=== PATIENT | female | born 1980 | race Caucasian/White ===

== ENCOUNTER 2016-07-27 19:14 | Emergency (ER) | payer OTHER ==
[~2016-07-27] VITALS: Ht 165.1 cm; Wt 113.4 kg
[~2016-07-27 19:14] MED LIST: ACULAR 3 ML3 M1 OP; AMOXICILLIN500 M2 PO; AMOXICILLIN500 MG PO; AMOXIL500 MG PO; ANAPROX DS550 MG PO; BACTROBAN2% TP; BUPROPION HCL300 MG PO; CARAFATE1 GM/10 ML PO; CEFUROXIME AXE250 MG PO; CIPRO250 MG PO; CIPRODEX 0.3%-7.5 ML OT; CIPROFLOXACIN500 MG PO; CLARITIN10 MG PO; COLACE100 MG PO; CORTISPORIN SUS10 ML OT; CYCLOBENZAPRINE10 MG PO; DARVOCET N 1001 TAB PO; DAYPRO600 M1 PO; DIFLUCAN150 MG PO; FERRATE325 MG PO; HYDROCODONE BIT1 T11 PO; IBU-8800 MG PO; K-TAB20 MEQ PO; KCL; KEFLEX500 M1 PO; LEVOTHYROXINE0.1 MG PO; LISINOPRIL2.5 MG PO; LISINOPRIL5 MG PO; LOMOTIL 0.025 M1 TA1 PO; LOTRISONE 0.05%1 CRE TP; MACROBID100 M1 PO; MEDROL DOSEPAK4 MG PO; MOTRIN 800 MG E4 TAB PO; MOTRIN600 MG PO; MOTRIN800 MG PO; NAPROSYN500 MG PO; NKHM; NORCO 325 MG-51 TAB PO; NYSTOP100000 U/G T; Nystatin Ointme30 GM T; PERCOCET 325 MG1 TA2 PO; PERCOCET 325 MG1 TA5 PO; PERCOCET 325 MG1 TA7 PO; PHENERGAN W/ DE30 ML PO; PHENERGAN W/DM120 ML PO; PIROXICAN10 MG PO; PREDNICOT10 MG PO; PRENATAL1 TA1 PO; PREVACID30 MG PO; PROAIR HFA0.09 MG/AC INH; PYRIDIUM200 M1 PO; ROBAXIN750 MG PO; SEPTRA DS 800 M1 TAB PO; SYNTHROID,LEVO75 MCG PO; SYNTHROID0.025 MG PO; Synthroid,Levo25 MCG PO; Synthroid,Levo50 MCG PO; TESSALON PERLE100 M1 PO; TOBREX OPHTH S2.5 ML OPH; TRAMADOL HCL50 MG PO; TRIMOX500 MG PO; ULTRAM50 MG PO; VIBRAMYCIN100 MG PO; VICODIN 5/500 505 MG PO; VITAMIN D5000 I3 PO; ZITHROMAX Z PA250 MG PO; ZITHROMAX250 MG PO; ZOFRAN ODT4 MG SL; ZOFRAN4 MG PO; Zofran4 MG PO
[2016-07-27 20:02] VITALS: BP 130/90
[2016-07-27] MEDS ORDERED: AMOXICILLIN500 M2 PO (20:11)
== END 2016-07-27 20:07 | disposition home or self-care (01) ==
LOC: ED 19:14
DX: J02.9 Acute pharyngitis, unspecified (principal); I10 Essential (primary) hypertension; Z90.49 Acquired absence of other specified parts of digestive tract

== ENCOUNTER → 2016-08-01 | Outpatient (CLI) | payer OTHER ==
[2016-08-01 16:57] LABS: BILIRUBIN NEGATIVE (NEGATIVE); BLOOD 1+ (NEGATIVE); CLARITY CLEAR (CLEAR); COLOR YELLOW (YELLOW); GLUCOSE NEGATIVE (NEGATIVE); KETONE NEGATIVE (NEGATIVE); LEUKO ESTERASE NEGATIVE (NEGATIVE); NITRITE NEGATIVE (NEGATIVE); PROTEIN NEGATIVE (NEGATIVE); UROBILINOGEN 0.2 E.U./dl (0.2-1.0)
[2016-08-01 17:20] LABS: BACTERIA 2+; WBC 0-2 wbc/hpf (0-5)
[2016-08-01 17:22] LABS: ALBUMIN 3.6 gm/dl (3.1-4.5); BUN 8 mg/dl (7-24); CARBON DIOXIDE 28 mmol/L (21-32); CHLORIDE 104 mmol/L (98-107); EST GLOM FILT AFRICAN AMERICAN > 60 ml/min; GLUCOSE 86 mg/dL (65-99); PHOSPHOROUS 3.6 mg/dL (2.5-4.9); POTASSIUM 3.7 mmol/L (3.5-5.1); SODIUM 142 mmol/L (136-145)
[2016-08-01 17:25] LABS: BASO % 0.5 % (0.0-1.0); EOS # 0.1 10*3/uL (0.0-0.4); EOS % 1.5 % (1.0-4.0); HEMOGLOBIN 14.6 g/dl (12.0-16.0); LYMPH # 2.1 10*3/uL (1.3-4.4); LYMPH % 27.9 % (27.0-41.0); MEAN CORPUSCULAR HGB 30.2 pg (27.0-31.0); MEAN PLATELET VOLUME 9.5 fl (9.6-12.3); MONO # 0.5 10*3/uL (0.1-1.0); MONO % 6.5 % (3.0-9.0); NEUT # 4.7 10*3/uL (2.3-7.9); NEUT % 63.2 % (47.0-73.0); PLATELET COUNT AUTOMATED 374 10*3/uL (130-400); RED BLOOD COUNT 4.83 10*6/uL (4.10-5.10); RED CELL DISTRI WIDTH 13.4 % (0-14.5); WHITE BLOOD COUNT 7.4 10*3/uL (4.8-10.8)
== END | disposition home or self-care (01) ==
LOC: LAB 15:46
PROVIDERS: Internal Medicine Nephrology
DX: N18.3 Chronic kidney disease, stage 3 (moderate) (principal)

== ENCOUNTER 2017-04-15 12:07 | Emergency (ER) | payer OTHER ==
[~2017-04-15] VITALS: Ht 165.1 cm; Wt 109.3 kg
[2017-04-15 12:25] VITALS: BP 152/98
[2017-04-15] MEDS ORDERED: ROBITUSSIN DM 105 ML PO (15:03)
[2017-04-15] MEDS ORDERED: Motrin,Rufen800 MG PO (15:03)
[2017-04-15] MEDS ORDERED: PHENERGAN25 M3 PO (15:03)
== END 2017-04-15 15:11 | disposition home or self-care (01) ==
LOC: ED 12:07
DX: J11.1 Influenza due to unidentified influenza virus with other respiratory manifestations (principal); Z98.890 Other specified postprocedural states; Z98.51 Tubal ligation status; Z90.49 Acquired absence of other specified parts of digestive tract; Z79.899 Other long term (current) drug therapy

== ENCOUNTER 2017-05-18 22:48 | Emergency (ER) | payer OTHER ==
[~2017-05-18] VITALS: Ht 165.1 cm; Wt 108.9 kg
[~2017-05-18 22:48] MED LIST changes: +Motrin,Rufen800 MG PO; +PHENERGAN25 M3 PO; +ROBITUSSIN DM 105 ML PO
[2017-05-18 22:58] VITALS: BP 153/96
[2017-05-18 23:27] LABS: BILIRUBIN NEGATIVE (NEGATIVE); BLOOD NEGATIVE (NEGATIVE); CLARITY SL CLOUDY (CLEAR); COLOR YELLOW (YELLOW); GLUCOSE NEGATIVE (NEGATIVE); KETONE NEGATIVE (NEGATIVE); LEUKO ESTERASE NEGATIVE (NEGATIVE); NITRITE NEGATIVE (NEGATIVE); PH 5.5 (5.0-9.0); SPECIFIC GRAVITY >= 1.030 (1.005-1.030); UROBILINOGEN 0.2 E.U./dl (0.2-1.0)
[2017-05-18 23:32] LABS: BACTERIA 2+; MUCOUS 1+; RBC 0-2 rbc/hpf (0-2)
[2017-05-19 00:10] LABS: BASO # 0.1 10*3/uL (0.0-0.1); BASO % 0.7 % (0.0-1.0); EOS # 0.1 10*3/uL (0.0-0.4); EOS % 1.9 % (1.0-4.0); HEMATOCRIT 38.8 % (37.0-47.0); HEMOGLOBIN 13.5 g/dl (12.0-16.0); LYMPH # 2.3 10*3/uL (1.3-4.4); LYMPH % 33.8 % (27.0-41.0); MEAN CELL VOLUME 87.2 fl (81.0-99.0); MEAN CORPUSCULAR HGB 30.3 pg (27.0-31.0); MEAN CORPUSCULAR HGB CONC 34.8 g/dl (33.0-37.0); MEAN PLATELET VOLUME 9.1 fl (9.6-12.3); MONO # 0.4 10*3/uL (0.1-1.0); MONO % 6.1 % (3.0-9.0); NEUT # 3.9 10*3/uL (2.3-7.9); NEUT % 57.4 % (47.0-73.0); PLATELET COUNT AUTOMATED 314 10*3/uL (130-400); RED BLOOD COUNT 4.45 10*6/uL (4.10-5.10); RED CELL DISTRI WIDTH 13.4 % (0-14.5); WHITE BLOOD COUNT 6.9 10*3/uL (4.8-10.8)
[2017-05-19 00:25] LABS: ALBUMIN 3.6 gm/dl (3.1-4.5); ALKALINE PHOSPHATASE 38 U/L (45-117); BUN 13 mg/dl (7-24); CHLORIDE 104 mmol/L (98-107); CREATININE 1.09 mg/dL (0.55-1.02); POTASSIUM 3.3 mmol/L (3.5-5.1); SGOT/AST 16 IU/L (3-35); SGPT/ALT 35 U/L (12-78); SODIUM 138 mmol/L (136-145); TOTAL PROTEIN 6.9 gm/dL (6.4-8.2)
[2017-05-19] MEDS ORDERED: MACROBID100 M1 PO (00:38)
== END 2017-05-19 00:46 | disposition home or self-care (01) ==
LOC: ED 22:48
PROVIDERS: Nurse Practitioner Family
DX: N39.0 Urinary tract infection, site not specified (principal); I12.9 Hypertensive chronic kidney disease with stage 1 through stage 4 chronic kidney disease, or unspecified chronic kidney disease; N18.3 Chronic kidney disease, stage 3 (moderate); E03.9 Hypothyroidism, unspecified; E66.9 Obesity, unspecified; Z68.42 Body mass index [BMI] 45.0-49.9, adult; Z98.890 Other specified postprocedural states; Z87.442 Personal history of urinary calculi; Z98.51 Tubal ligation status; Z90.49 Acquired absence of other specified parts of digestive tract; Z79.899 Other long term (current) drug therapy

== ENCOUNTER 2017-06-16 10:26 | Emergency (ER) | payer OTHER ==
[~2017-06-16] VITALS: Ht 165.1 cm; Wt 108.9 kg
[~2017-06-16 10:26] MED LIST changes: +FLONASE ALLERG9.9 ML NAS
[2017-06-16 10:58] VITALS: BP 169/94
[2017-06-16] MEDS ORDERED: PREDNISONE10 MG PO (13:11)
== END 2017-06-16 13:17 | disposition home or self-care (01) ==
LOC: ED 10:26
DX: R51 Headache (principal); Z79.899 Other long term (current) drug therapy; Z90.49 Acquired absence of other specified parts of digestive tract; Z98.51 Tubal ligation status

== ENCOUNTER 2017-06-24 13:30 | Emergency (ER) | payer OTHER ==
[~2017-06-24] VITALS: Ht 165.1 cm; Wt 108.9 kg
[~2017-06-24 13:30] MED LIST changes: +PREDNISONE10 MG PO
[2017-06-24 13:35] VITALS: BP 132/93
[2017-06-24] MEDS ORDERED: AVPAK AZITHROM250 M1 PO (14:38)
== END 2017-06-24 14:41 | disposition home or self-care (01) ==
LOC: ED 13:30
DX: J02.9 Acute pharyngitis, unspecified (principal); H92.03 Otalgia, bilateral; J06.9 Acute upper respiratory infection, unspecified; Z90.49 Acquired absence of other specified parts of digestive tract

== ENCOUNTER 2017-08-08 13:24 | Inpatient (IN) | payer OTHER ==
[~2017-08-08] VITALS: Ht 165.1 cm; Wt 108.1 kg
--- NOTE | ~2017-08-08 | CON ---
[place], [place] REPORT OF CONSULTATION NAME: BIGG BROWN UNIT #: [id number] ROOM: 412 DOCTOR: ALEXANDER SALGADO MD BIRTHDATE: [birth year] DOS: 08/09/2017 REASON FOR CONSULTATION: Chest pain. HISTORY OF PRESENT ILLNESS: The patient is a 36-year-old woman who has no previously documented history of coronary artery disease. She has had chest pain in the past. Evaluation by Dr. Coreas in [place] last summer showed a reportedly normal stress test. It was felt that she had noncardiac chest pain. The patient was at work at the [employer] when she developed chest discomfort with some dyspnea and fatigue. She states that this was not the same as the pains that she had in the past with gastroesophageal reflux and noted that antacids did not seem to help much. She told her biomedical engineering supervisor who directed her to the plant nurse from which she was directed to the hospital. Since she has been in the Emergency Room, her electrocardiogram has shown nonspecific ST and T-wave changes. Troponins, however, have been normal. PAST MEDICAL HISTORY: Includes: 1. Essential hypertension. 2. Gastroesophageal reflux disease. 3. Hypothyroidism. 4. Obesity. 5. Obstructive sleep apnea. 6. Prediabetes. 7. Chronic renal insufficiency, stage I. PAST SURGICAL HISTORY: The patient is status post cholecystectomy, section, and endometrial ablation. She has also had endoscopy and a hernia repair. MEDICATIONS: Prior to admission included ibuprofen 800 mg t.i.d., levothyroxine 200 mcg daily and lisinopril 5 mg daily. ALLERGIES: She has no known drug allergies. FAMILY HISTORY: The patient's father when she was quite young. She states that she was told that he consumed alcohol and prescription drugs to excess. She believes that he did , however, of heart disease. The patient's family otherwise is negative for early coronary artery disease. REVIEW OF SYSTEMS: The patient denies diplopia or loss of vision. She denies focal weakness. She denies lightheadedness or syncope. She does have dyspnea on exertion. She does have chest pain as noted above. She denies nausea or vomiting. She denies hemoptysis or hematemesis. She denies blood in the urine or stools. She denies any skin rashes. She has had some weight gain over the last year. She denies any peripheral edema. The remainder of the review of systems is negative except as noted above. SOCIAL HISTORY: The patient does not smoke or consume alcohol. [place], [place] REPORT OF CONSULTATION NAME: BIGG BROWN UNIT #: [id number] ROOM: 412 DOCTOR: ALEXANDER SALGADO MD BIRTHDATE: [birth year] PHYSICAL EXAMINATION: GENERAL: The patient is an overweight white female who is awake, alert and oriented. VITAL SIGNS: Pulse is 79 and regular, blood pressure 113/85. She is afebrile. HEENT: Normocephalic and atraumatic. Extraocular muscles are intact. Sclerae are clear. Pupils equal, round and react to light. The oral mucosa is moist. Tongue is midline. NECK: Supple. She has no jugular distention. Carotids are full. I heard no bruits. She had no neck or supraclavicular masses, no thyromegaly. LUNGS: Respirations are unlabored. Her chest is clear to auscultation and percussion. She has no presacral edema or chest wall tenderness. CARDIOVASCULAR: Has a regular rhythm. She has a soft S4 gallop, but no S3 or murmur. The PMI is not displaced. She has no precordial heave, lift or thrill. ABDOMEN: Soft and normally active without masses, organomegaly or bruits. EXTREMITIES: Showed no edema. Peripheral pulses are easily palpated in the feet. LABORATORY DATA: I reviewed her electrocardiogram, which showed sinus rhythm with nonspecific ST and T-wave changes. IMPRESSION: 1. Atypical chest pain. Thus far, there is no objective evidence for an acute cardiac event. 2. Morbid obesity. 3. Hypertension. PLAN: We will proceed with a pharmacologic stress test. Further recommendations depend upon the results of the study. In the interim, the patient should continue to attempt a healthy lifestyle and avoid risks for coronary disease. I thank the hospitalist physicians for asking our advice regarding her care. ALEXANDER SALGADO MD CM:CONSTR:REPORT OF CONSULTATION 1035 08/09/17 1100 interface
[~2017-08-08 13:24] MED LIST changes: +AVPAK AZITHROM250 M1 PO; -LEVOTHYROXINE0.1 MG PO; +LEVOTHYROXINE200 MC2 PO
[2017-08-08 13:29] VITALS: BP 135/92
[2017-08-08 13:50] LABS: BASO # 0.1 10*3/uL (0.0-0.1); BASO % 0.8 % (0.0-1.0); EOS # 0.1 10*3/uL (0.0-0.4); HEMOGLOBIN 14.6 g/dl (12.0-16.0); LYMPH # 1.9 10*3/uL (1.3-4.4); LYMPH % 26.8 % (27.0-41.0); MEAN CELL VOLUME 86.2 fl (81.0-99.0); MEAN CORPUSCULAR HGB CONC 34.8 g/dl (33.0-37.0); MEAN PLATELET VOLUME 8.8 fl (9.6-12.3); MONO # 0.5 10*3/uL (0.1-1.0); MONO % 6.6 % (3.0-9.0); NEUT # 4.6 10*3/uL (2.3-7.9); NEUT % 64.7 % (47.0-73.0); PLATELET COUNT AUTOMATED 342 10*3/uL (130-400); RED BLOOD COUNT 4.87 10*6/uL (4.10-5.10); RED CELL DISTRI WIDTH 13.1 % (0-14.5); WHITE BLOOD COUNT 7.1 10*3/uL (4.8-10.8)
[2017-08-08 13:59] LABS: ACT PARTIAL THROMBO TIME 26.3 SECONDS (20.8-31.5); INTERNATIONAL NORM RATIO 0.9 (2.0-3.5)
[2017-08-08 14:06] LABS: ALBUMIN 3.8 gm/dl (3.1-4.5); ALKALINE PHOSPHATASE 38 U/L (45-117); BUN 13 mg/dl (7-24); CHLORIDE 102 mmol/L (98-107); CREATININE 1.06 mg/dL (0.55-1.02); LIPASE 77 U/L (73-393); POTASSIUM 3.6 mmol/L (3.5-5.1); SGOT/AST 20 IU/L (3-35); SGPT/ALT 43 U/L (12-78); SODIUM 137 mmol/L (136-145); TOTAL PROTEIN 7.8 gm/dL (6.4-8.2)
[2017-08-08 14:07] LABS: BETA-HCG, QUANT < 1.0 mIU/mL (1-3)
[2017-08-08 14:10] LABS: TROPONIN I < 0.015 ng/ml (<0.045)
[2017-08-08 14:23] VITALS: BP 145/87
[2017-08-08 14:59] VITALS: BP 128/91
[2017-08-08 16:45] VITALS: BP 148/95
[2017-08-08 19:24] VITALS: BP 150/70
[2017-08-08 20:00] VITALS: BP 148/87
[2017-08-09] VITALS: BP 122/69; BP 126/82
[2017-08-09 06:29] LABS: BASO % 0.5 % (0.0-1.0); EOS # 0.1 10*3/uL (0.0-0.4); EOS % 1.4 % (1.0-4.0); HEMATOCRIT 40.4 % (37.0-47.0); HEMOGLOBIN 13.9 g/dl (12.0-16.0); LYMPH # 1.5 10*3/uL (1.3-4.4); LYMPH % 27.2 % (27.0-41.0); MEAN CELL VOLUME 86.9 fl (81.0-99.0); MEAN CORPUSCULAR HGB 29.9 pg (27.0-31.0); MEAN CORPUSCULAR HGB CONC 34.4 g/dl (33.0-37.0); MONO # 0.5 10*3/uL (0.1-1.0); MONO % 9.4 % (3.0-9.0); NEUT # 3.4 10*3/uL (2.3-7.9); NEUT % 61.1 % (47.0-73.0); PLATELET COUNT AUTOMATED 310 10*3/uL (130-400); RED BLOOD COUNT 4.65 10*6/uL (4.10-5.10); RED CELL DISTRI WIDTH 13.2 % (0-14.5); WHITE BLOOD COUNT 5.6 10*3/uL (4.8-10.8)
[2017-08-09 06:48] LABS: ALBUMIN 3.5 gm/dl (3.1-4.5); ALKALINE PHOSPHATASE 33 U/L (45-117); BUN 20 mg/dl (7-24); CHLORIDE 105 mmol/L (98-107); CREATININE 0.89 mg/dL (0.55-1.02); PHOSPHOROUS 5.7 mg/dL (2.5-4.9); POTASSIUM 3.6 mmol/L (3.5-5.1); SGOT/AST 20 IU/L (3-35); SGPT/ALT 39 U/L (12-78); SODIUM 138 mmol/L (136-145)
[2017-08-09 06:55] LABS: THYROID STIM HORMONE (HS) 0.038 uIU/ml (0.358-4.75)
[2017-08-09 07:12] LABS: ACT PARTIAL THROMBO TIME 25.7 SECONDS (20.8-31.5); INTERNATIONAL NORM RATIO 0.9 (2.0-3.5)
[2017-08-09 08:00] VITALS: BP 113/85
[2017-08-09 08:22] LABS: VITAMIN D, 25-HYDROXY 15.9 ng/mL (30-100)
[2017-08-09 12:00] VITALS: BP 124/69
[2017-08-09] MEDS ORDERED: VITAMIN D-32000 UNIT PO (16:56)
== END 2017-08-09 17:41 | disposition home or self-care (01) | DRG 313 ==
LOC: ED 13:24 → EDHOLD 18:38 → 4E 19:40
PROVIDERS: Emergency Medicine; Internal Medicine
PROC: 4A02XM4 Measurement of Cardiac Total Activity, External Approach (ICD-10-PCS; principal; 2017-08-09)
PROC: 3E073KZ Introduction of Other Diagnostic Substance into Coronary Artery, Percutaneous Approach (ICD-10-PCS; principal; 2017-08-09)
DX: R07.89 Other chest pain (principal); R65.10 Systemic inflammatory response syndrome (SIRS) of non-infectious origin without acute organ dysfunction; K76.0 Fatty (change of) liver, not elsewhere classified; E66.01 Morbid (severe) obesity due to excess calories; E83.39 Other disorders of phosphorus metabolism; E83.41 Hypermagnesemia; R06.82 Tachypnea, not elsewhere classified; R73.9 Hyperglycemia, unspecified; R91.1 Solitary pulmonary nodule; N18.2 Chronic kidney disease, stage 2 (mild); K21.9 Gastro-esophageal reflux disease without esophagitis; E03.9 Hypothyroidism, unspecified; I12.9 Hypertensive chronic kidney disease with stage 1 through stage 4 chronic kidney disease, or unspecified chronic kidney disease; G47.33 Obstructive sleep apnea (adult) (pediatric); Z80.0 Family history of malignant neoplasm of digestive organs; Z82.49 Family history of ischemic heart disease and other diseases of the circulatory system; Z90.49 Acquired absence of other specified parts of digestive tract; Z68.39 Body mass index [BMI] 39.0-39.9, adult

== ENCOUNTER → 2017-09-26 | Day surgery (SDC) | payer OTHER ==
[~2017-09-26] VITALS: Ht 165.1 cm; Wt 104.3 kg
[~2017-09-26] MED LIST changes: +BUDEPRION XL150 MG PO; +VITAMIN D-32000 UNIT PO
--- NOTE | ~2017-09-26 | O ---
[place], [place] OPERATIVE NOTE NAME: BIGG BROWN UNIT #: [id number] ROOM: DOCTOR: DERECK SMITH MD BIRTHDATE: [birth year] DOS: 09/26/2017 GASTROENDOSCOPIC REPORT HISTORY OF PRESENT ILLNESS: A 36-year-old patient who has presented with chief complaint of epigastric distress, atypical chest pain, subxiphoid pain. The patient with a history of dyspepsia. The patient is on Motrin, levothyroxine, and lisinopril. FAMILY HISTORY: Noncontributory. ALLERGIES: No known medication. PAST SURGICAL HISTORY: Uterine ablation, , cholecystectomy, and hernia repairs. PAST MEDICAL HISTORY: Hypothyroidism. SOCIAL HISTORY: Nonsmoker, nonalcohol consumer. PROCEDURE: Today's procedure part of investigation is panendoscopy plus biopsy. PREMEDICATION: Versed and propofol. SCOPE: Olympus forward-viewing gastroscope Q10 video. REPORT: After putting the patient in left lateral position and application of lubricant to the scope, the scope was introduced. Thereafter, under direct visualization, advanced through the length of esophagus without difficulty. Gastric pouch was entered. Gastritis was seen. Duodenal bulb, second and third part within normal limit. Antral biopsy obtained. The patient was extubated, tolerated the procedure well. IMPRESSION: Gastritis, status post biopsy. PLAN AND DISCUSSION: Omeprazole 20 mg 1 every day is definitely recommended and will be started. The patient advised to abstain continuous take of Motrin 800 mg t.i.d. Advised to utilize Gaviscon as antacid of choice, particularly when she takes her Motrin and antireflux measures with elevation of the head of the bed 6-inch all time and clinical reassessment as outpatient. [place], [place] OPERATIVE NOTE NAME: BIGG BROWN UNIT #: [id number] ROOM: DOCTOR: DERECK SMITH MD BIRTHDATE: [birth year] DERECK SMITH MD CM:OPRECORD:OPERATIVE NOTE 1303 1400 DERECK SMITH MD 09/26/17 1354 interface
[2017-09-26 10:57] VITALS: BP 133/97
[2017-09-26 12:55] VITALS: BP 138/88
[2017-09-26 13:10] VITALS: BP 162/87
[2017-09-26 13:25] VITALS: BP 160/92
== END | disposition home or self-care (01) ==
LOC: SDC 09-20 08:00
DX: K29.50 Unspecified chronic gastritis without bleeding (principal); I10 Essential (primary) hypertension; E03.9 Hypothyroidism, unspecified; G47.33 Obstructive sleep apnea (adult) (pediatric); F32.9 Major depressive disorder, single episode, unspecified; Z98.51 Tubal ligation status; Z90.49 Acquired absence of other specified parts of digestive tract; Z79.899 Other long term (current) drug therapy; Z98.890 Other specified postprocedural states

== ENCOUNTER 2017-11-11 17:14 | Emergency (ER) | payer OTHER ==
[~2017-11-11] VITALS: Ht 165.1 cm; Wt 110.7 kg
--- NOTE | ~2017-11-11 | EKG ---
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
[~2017-11-11 17:14] MED LIST changes: -BUDEPRION XL150 MG PO
[2017-11-11 17:15] VITALS: BP 112/77
[2017-11-11] MEDS ORDERED: BUDEPRION XL150 MG PO (17:26)
[2017-11-11 17:46] LABS: BASO # 0.1 10*3/uL (0.0-0.1); BASO % 0.7 % (0.0-1.0); EOS # 0.1 10*3/uL (0.0-0.4); EOS % 1.3 % (1.0-4.0); HEMATOCRIT 44.4 % (37.0-47.0); HEMOGLOBIN 14.7 g/dl (12.0-16.0); LYMPH # 1.9 10*3/uL (1.3-4.4); MEAN CELL VOLUME 88.8 fl (81.0-99.0); MEAN CORPUSCULAR HGB 29.4 pg (27.0-31.0); MEAN CORPUSCULAR HGB CONC 33.1 g/dl (33.0-37.0); MONO # 0.7 10*3/uL (0.1-1.0); MONO % 7.6 % (3.0-9.0); NEUT % 68.2 % (47.0-73.0); PLATELET COUNT AUTOMATED 372 10*3/uL (130-400); RED CELL DISTRI WIDTH 14.4 % (0-14.5); WHITE BLOOD COUNT 8.7 10*3/uL (4.8-10.8)
[2017-11-11 18:06] LABS: BUN 8 mg/dl (7-24); CHLORIDE 102 mmol/L (98-107); CREATININE 1.05 mg/dL (0.55-1.02); POTASSIUM 3.8 mmol/L (3.5-5.1); SODIUM 138 mmol/L (136-145)
[2017-11-11 18:07] LABS: TROPONIN I < 0.015 ng/ml (<0.045)
== END 2017-11-11 19:07 | disposition home or self-care (01) ==
LOC: ED 17:14
PROVIDERS: Nurse Practitioner
DX: S46.911A Strain of unspecified muscle, fascia and tendon at shoulder and upper arm level, right arm, initial encounter (principal); I10 Essential (primary) hypertension; Z79.899 Other long term (current) drug therapy; Z90.49 Acquired absence of other specified parts of digestive tract; Z98.51 Tubal ligation status; Y93.89 Activity, other specified; X58.XXXA Exposure to other specified factors, initial encounter; Y92.89 Other specified places as the place of occurrence of the external cause; Y99.8 Other external cause status

== ENCOUNTER 2018-02-15 13:57 | Emergency (ER) | payer OTHER ==
[~2018-02-15] VITALS: Ht 165.1 cm; Wt 108.9 kg
[~2018-02-15 13:57] MED LIST changes: +BUDEPRION XL150 MG PO; +CEPHALEXIN500 M1 PO; +SEPTDS PO; +WELLBUTRIN XL300 MG PO
[2018-02-15 13:59] VITALS: BP 149/92
[2018-02-15 14:23] LABS: BASO % 0.6 % (0.0-1.0); EOS # 0.1 10*3/uL (0.0-0.4); EOS % 1.8 % (1.0-4.0); LYMPH # 1.5 10*3/uL (1.3-4.4); LYMPH % 24.5 % (27.0-41.0); MEAN CELL VOLUME 89.7 fl (81.0-99.0); MEAN CORPUSCULAR HGB 30.6 pg (27.0-31.0); MEAN CORPUSCULAR HGB CONC 34.1 g/dl (33.0-37.0); MEAN PLATELET VOLUME 8.8 fl (9.6-12.3); MONO # 0.3 10*3/uL (0.1-1.0); MONO % 5.3 % (3.0-9.0); NEUT # 4.2 10*3/uL (2.3-7.9); NEUT % 67.6 % (47.0-73.0); PLATELET COUNT AUTOMATED 346 10*3/uL (130-400); RED BLOOD COUNT 4.57 10*6/uL (4.10-5.10); RED CELL DISTRI WIDTH 13.3 % (0-14.5); WHITE BLOOD COUNT 6.2 10*3/uL (4.8-10.8)
[2018-02-15 14:23] LABS: BILIRUBIN NEGATIVE (NEGATIVE); BLOOD NEGATIVE (NEGATIVE); CLARITY CLEAR (CLEAR); COLOR YELLOW (YELLOW); GLUCOSE NEGATIVE (NEGATIVE); KETONE NEGATIVE (NEGATIVE); LEUKO ESTERASE NEGATIVE (NEGATIVE); NITRITE NEGATIVE (NEGATIVE); SPECIFIC GRAVITY >= 1.030 (1.005-1.030); UROBILINOGEN 0.2 E.U./dl (0.2-1.0)
[2018-02-15 14:39] LABS: ALBUMIN 3.7 gm/dl (3.1-4.5); ALKALINE PHOSPHATASE 42 U/L (45-117); BUN 11 mg/dl (7-24); CHLORIDE 104 mmol/L (98-107); CREATININE 1.04 mg/dL (0.55-1.02); POTASSIUM 3.7 mmol/L (3.5-5.1); SGOT/AST 16 IU/L (3-35); SGPT/ALT 27 U/L (12-78); SODIUM 138 mmol/L (136-145); TOTAL PROTEIN 7.3 gm/dL (6.4-8.2)
[2018-02-15 14:59] LABS: BACTERIA 1+; EPITHELIAL CELLS 21-30
[2018-02-15] MEDS ORDERED: CYCLOBENZAPRINE10 MG PO (16:08)
[2018-02-15] MEDS ORDERED: Motrin,Rufen800 MG PO (16:08)
== END 2018-02-15 16:40 | disposition home or self-care (01) ==
LOC: ED 13:57
PROVIDERS: Emergency Medicine
DX: M54.5 Low back pain (principal); R10.9 Unspecified abdominal pain; I12.9 Hypertensive chronic kidney disease with stage 1 through stage 4 chronic kidney disease, or unspecified chronic kidney disease; N18.2 Chronic kidney disease, stage 2 (mild); K21.9 Gastro-esophageal reflux disease without esophagitis; E66.01 Morbid (severe) obesity due to excess calories; Z87.442 Personal history of urinary calculi; Z79.899 Other long term (current) drug therapy; Z90.49 Acquired absence of other specified parts of digestive tract; Z68.41 Body mass index [BMI] 40.0-44.9, adult

== ENCOUNTER 2018-04-30 01:05 | Emergency (ER) | payer OTHER ==
[~2018-04-30] VITALS: Ht 165.1 cm; Wt 108.9 kg
[2018-04-30 01:07] VITALS: BP 155/77
[2018-04-30] MEDS ORDERED: Motrin,Rufen800 MG PO (01:45)
== END 2018-04-30 03:44 | disposition home or self-care (01) ==
LOC: ED 01:05
DX: S49.81XA Other specified injuries of right shoulder and upper arm, initial encounter (principal); S59.801A Other specified injuries of right elbow, initial encounter; I12.9 Hypertensive chronic kidney disease with stage 1 through stage 4 chronic kidney disease, or unspecified chronic kidney disease; N18.2 Chronic kidney disease, stage 2 (mild); K21.9 Gastro-esophageal reflux disease without esophagitis; E03.9 Hypothyroidism, unspecified; E66.01 Morbid (severe) obesity due to excess calories; Z79.899 Other long term (current) drug therapy; Z90.49 Acquired absence of other specified parts of digestive tract; X50.3XXA Overexertion from repetitive movements, initial encounter; Y93.89 Activity, other specified; Y92.89 Other specified places as the place of occurrence of the external cause; Y99.8 Other external cause status

== ENCOUNTER 2018-08-24 21:58 | Emergency (ER) | payer OTHER ==
[~2018-08-24] VITALS: Ht 165.1 cm; Wt 113.4 kg
[~2018-08-24 21:58] MED LIST changes: -LEVOTHYROXINE200 MC2 PO; +Synthroid,Lev100 MCG PO
[2018-08-24 22:00] VITALS: BP 164/92
[2018-08-24 22:36] LABS: BASO # 0.1 10*3/uL (0.0-0.1); BASO % 0.8 % (0.0-1.0); EOS # 0.2 10*3/uL (0.0-0.4); HEMATOCRIT 40.7 % (37.0-47.0); LYMPH # 2.3 10*3/uL (1.3-4.4); LYMPH % 31.1 % (27.0-41.0); MEAN CELL VOLUME 89.3 fl (81.0-99.0); MEAN CORPUSCULAR HGB 30.7 pg (27.0-31.0); MEAN CORPUSCULAR HGB CONC 34.4 g/dl (33.0-37.0); MEAN PLATELET VOLUME 9.1 fl (9.6-12.3); MONO # 0.4 10*3/uL (0.1-1.0); MONO % 5.1 % (3.0-9.0); NEUT # 4.6 10*3/uL (2.3-7.9); NEUT % 60.9 % (47.0-73.0); PLATELET COUNT AUTOMATED 344 10*3/uL (130-400); RED BLOOD COUNT 4.56 10*6/uL (4.10-5.10); RED CELL DISTRI WIDTH 13.6 % (0-14.5); WHITE BLOOD COUNT 7.5 10*3/uL (4.8-10.8)
[2018-08-24 22:49] LABS: BILIRUBIN NEGATIVE (NEGATIVE); BLOOD NEGATIVE (NEGATIVE); CLARITY CLEAR (CLEAR); COLOR YELLOW (YELLOW); GLUCOSE NEGATIVE (NEGATIVE); KETONE NEGATIVE (NEGATIVE); LEUKO ESTERASE NEGATIVE (NEGATIVE); NITRITE NEGATIVE (NEGATIVE); SPECIFIC GRAVITY 1.025 (1.005-1.030); UROBILINOGEN 0.2 E.U./dl (0.2-1.0)
[2018-08-24 22:51] LABS: ALBUMIN 3.8 gm/dl (3.1-4.5); ALKALINE PHOSPHATASE 37 U/L (45-117); BUN 11 mg/dl (7-24); CHLORIDE 105 mmol/L (98-107); CREATININE 1.03 mg/dL (0.55-1.02); LIPASE 65 U/L (73-393); POTASSIUM 3.4 mmol/L (3.5-5.1); SGOT/AST 17 IU/L (3-35); SGPT/ALT 37 U/L (12-78); SODIUM 137 mmol/L (136-145); TOTAL PROTEIN 7.4 gm/dL (6.4-8.2)
[2018-08-24 22:57] LABS: WBC 0-2 wbc/hpf (0-5)
[2018-08-24 22:58] LABS: RBC 0-2 rbc/hpf (0-2)
== END 2018-08-25 01:04 | disposition home or self-care (01) ==
LOC: ED 21:58
PROVIDERS: Nurse Practitioner Family
DX: R10.31 Right lower quadrant pain (principal); R10.11 Right upper quadrant pain; R10.32 Left lower quadrant pain; E03.9 Hypothyroidism, unspecified; I10 Essential (primary) hypertension; Z98.890 Other specified postprocedural states; Z98.51 Tubal ligation status; Z90.49 Acquired absence of other specified parts of digestive tract; Z79.899 Other long term (current) drug therapy

== ENCOUNTER 2018-09-23 19:30 | Observation (INO) | payer OTHER ==
[~2018-09-23] VITALS: Ht 165.1 cm; Wt 116.7 kg
--- NOTE | ~2018-09-23 | EKG ---
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
--- NOTE | ~2018-09-23 | EKG ---
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
--- NOTE | ~2018-09-23 | EKG ---
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
[2018-09-23 19:44] VITALS: BP 144/91
[2018-09-23 19:44] LABS: BASO # 0.1 10*3/uL (0.0-0.1); BASO % 0.8 % (0.0-1.0); EOS # 0.2 10*3/uL (0.0-0.4); EOS % 2.9 % (1.0-4.0); HEMATOCRIT 42.2 % (37.0-47.0); HEMOGLOBIN 14.2 g/dl (12.0-16.0); LYMPH # 2.3 10*3/uL (1.3-4.4); LYMPH % 29.4 % (27.0-41.0); MEAN CELL VOLUME 90.4 fl (81.0-99.0); MEAN CORPUSCULAR HGB 30.4 pg (27.0-31.0); MEAN CORPUSCULAR HGB CONC 33.6 g/dl (33.0-37.0); MEAN PLATELET VOLUME 9.1 fl (9.6-12.3); MONO # 0.5 10*3/uL (0.1-1.0); MONO % 6.6 % (3.0-9.0); NEUT # 4.7 10*3/uL (2.3-7.9); NEUT % 59.9 % (47.0-73.0); PLATELET COUNT AUTOMATED 339 10*3/uL (130-400); RED BLOOD COUNT 4.67 10*6/uL (4.10-5.10); RED CELL DISTRI WIDTH 13.5 % (0-14.5); WHITE BLOOD COUNT 7.9 10*3/uL (4.8-10.8)
[2018-09-23 19:56] LABS: ACT PARTIAL THROMBO TIME 28.5 SECONDS (20.0-32.1); INTERNATIONAL NORM RATIO 0.9 (2.0-3.5)
[2018-09-23 20:00] LABS: ALBUMIN 3.7 gm/dl (3.1-4.5); ALKALINE PHOSPHATASE 44 U/L (45-117); BUN 9 mg/dl (7-24); CHLORIDE 105 mmol/L (98-107); POTASSIUM 3.5 mmol/L (3.5-5.1); SGOT/AST 16 IU/L (3-35); SGPT/ALT 35 U/L (12-78); SODIUM 141 mmol/L (136-145); TOTAL PROTEIN 7.5 gm/dL (6.4-8.2)
[2018-09-23 20:05] LABS: TROPONIN I < 0.015 ng/ml (<0.045)
[2018-09-23 20:13] VITALS: BP 146/85
[2018-09-23 21:00] VITALS: BP 146/80
[2018-09-23 21:05] LABS: BILIRUBIN NEGATIVE (NEGATIVE); BLOOD 3+ (NEGATIVE); CLARITY CLEAR (CLEAR); COLOR YELLOW (YELLOW); GLUCOSE NEGATIVE (NEGATIVE); KETONE NEGATIVE (NEGATIVE); LEUKO ESTERASE NEGATIVE (NEGATIVE); NITRITE NEGATIVE (NEGATIVE); SPECIFIC GRAVITY >= 1.030 (1.005-1.030); UROBILINOGEN 0.2 E.U./dl (0.2-1.0)
--- NOTE | 2018-09-23 21:11 | NUR ---
PER PATIENT PAIN HAS DECREASED FROM AN 8 TO ABOUT A 5 AT THIS TIME. PATIENT SITTING UP IN BED PLAYING ON CELL PHONE. RESPIRATIONS EASY, ON-LABORED ON ROOM AIR. NO DISTRESS NOTED. CALL LIGHT WITHIN REACH. SIDERAIL X1. RN WILL COTINUE TO MONITOR.
[2018-09-23 21:12] LABS: BACTERIA 1+; MUCOUS 1+
[2018-09-23 21:32] VITALS: BP 150/89
--- NOTE | 2018-09-23 21:32 | NUR ---
A 37yr old female admitted to , under the services of KIMBERLY Parrish DO with a diagnosis of CHEST PAIN. Chief complaint is chest pain with radiation to her left arm/tingling earlier today. Patient arrived via wheel chair from ER. Monitor applied. Initial assessment completed. Vital signs taken and recorded. See assessment for past medical history, medications and allergies. Patient and/or family oriented to unit. [facility] visitation policy reviewed. Clothing/patient valuable form completed. Medications reconciled pt knows names and doses of meds. BASIM LANGSTON L
[2018-09-23 21:38] LABS: WBC 0-2 wbc/hpf (0-5)
[2018-09-23] MEDS ORDERED: BUSPAR5 MG PO (21:59)
[2018-09-23] MEDS ORDERED: NYSTATIN CREAM15 GM T (22:00)
[2018-09-23] MEDS ORDERED: NYAMYC15 GM TP (22:01)
[2018-09-24] VITALS: BP 135/82
--- NOTE | 2018-09-24 00:23 | NUR ---
PT DOES HAVE DRY YEASTY AREAS UNDER LEFT BREAST AND RT GROIN. NOTHING OPEN.
--- NOTE | 2018-09-24 01:46 | NUR ---
DR LEARY HAS BEEN NOTIFIED THAT HOME MEDS ARE UPDATED PER MED REC.
--- NOTE | 2018-09-24 03:37 | NUR ---
PT HAS BEEN SLEEPING EASILY. NO DYSRHYTHMIAS OR RESPIRATORY DISTRESS.
[2018-09-24 06:20] LABS: BASO % 0.6 % (0.0-1.0); EOS # 0.2 10*3/uL (0.0-0.4); EOS % 3.1 % (1.0-4.0); HEMATOCRIT 39.4 % (37.0-47.0); HEMOGLOBIN 13.2 g/dl (12.0-16.0); LYMPH # 1.9 10*3/uL (1.3-4.4); LYMPH % 29.1 % (27.0-41.0); MEAN CELL VOLUME 90.2 fl (81.0-99.0); MEAN CORPUSCULAR HGB 30.2 pg (27.0-31.0); MEAN CORPUSCULAR HGB CONC 33.5 g/dl (33.0-37.0); MEAN PLATELET VOLUME 9.2 fl (9.6-12.3); MONO # 0.5 10*3/uL (0.1-1.0); MONO % 7.4 % (3.0-9.0); NEUT # 3.8 10*3/uL (2.3-7.9); NEUT % 59.5 % (47.0-73.0); PLATELET COUNT AUTOMATED 297 10*3/uL (130-400); RED BLOOD COUNT 4.37 10*6/uL (4.10-5.10); RED CELL DISTRI WIDTH 13.5 % (0-14.5); WHITE BLOOD COUNT 6.5 10*3/uL (4.8-10.8)
[2018-09-24 06:26] LABS: CHLORIDE 106 mmol/L (98-107); CHOLESTEROL 173 mg/dL (<200); CREATININE 0.93 mg/dL (0.55-1.02); POTASSIUM 3.7 mmol/L (3.5-5.1); SODIUM 140 mmol/L (136-145); TRIGLYCERIDES 175 mg/dl (<150); VLDL CHOLESTEROL 35 mg/dL (6-40)
[2018-09-24 06:36] LABS: BUN 12 mg/dl (7-24); FREE T4 0.77 ng/dl (0.76-1.46); HDL CHOLESTEROL 36 mg/dl (40-60); LDL CHOLESTEROL 102 mg/dL (9-159)
--- NOTE | 2018-09-24 07:45 | NUR ---
Patient resting quietly with no c/o discomfort. Respirations easy and regular. Vital signs stable. No overt distress. JANET DAMON
[2018-09-24 08:00] VITALS: BP 148/87
--- NOTE | 2018-09-24 09:03 | NUR ---
24 HR/ENTIRE chart check completed.
--- NOTE | 2018-09-24 10:20 | NUR ---
PATIENT LEAVING, OFFERED W/C, PATIENT DECLINED, PATIENT REQUESTED INPATIENT NYSTATIN CREAM AND POWDER TO GO HOME, DR. KIMBERLY MILIAN APPROVED AND SIGNED MEDICATIONS, WHICH WHERE THEN GIVEN TO PATIENT.
== END 2018-09-24 10:20 | disposition home or self-care (01) ==
LOC: ED 19:30 → EDHOLD 20:33 → 4E 20:57
PROVIDERS: Student in an Organized Health Care Education/Training Program; ADMIT Internal Medicine
DX: R07.89 Other chest pain (principal); I12.9 Hypertensive chronic kidney disease with stage 1 through stage 4 chronic kidney disease, or unspecified chronic kidney disease; N18.2 Chronic kidney disease, stage 2 (mild); R31.29 Other microscopic hematuria; R82.71 Bacteriuria; E66.01 Morbid (severe) obesity due to excess calories; K21.9 Gastro-esophageal reflux disease without esophagitis; E55.9 Vitamin D deficiency, unspecified; E03.9 Hypothyroidism, unspecified; Z79.899 Other long term (current) drug therapy

== ENCOUNTER 2018-11-05 19:25 | Inpatient (IN) | payer OTHER ==
[~2018-11-05] VITALS: Ht 165.1 cm; Wt 115.3 kg
--- NOTE | ~2018-11-05 | EKG ---
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
[~2018-11-05 19:25] MED LIST changes: +BUSPAR5 MG PO; +NYAMYC15 GM TP; +NYSTATIN CREAM15 GM T
[2018-11-05 19:29] VITALS: BP 185/93
--- NOTE | 2018-11-05 19:35 | NUR ---
Pt self ambulated to restroom without issue, gait steady.
[2018-11-05 19:50] VITALS: BP 173/86
[2018-11-05 20:29] LABS: BASO # 0.1 10*3/uL (0.0-0.1); BASO % 0.6 % (0.0-1.0); EOS # 0.2 10*3/uL (0.0-0.4); EOS % 2.4 % (1.0-4.0); HEMATOCRIT 39.9 % (37.0-47.0); HEMOGLOBIN 13.5 g/dl (12.0-16.0); LYMPH # 2.5 10*3/uL (1.3-4.4); LYMPH % 31.5 % (27.0-41.0); MEAN CELL VOLUME 90.7 fl (81.0-99.0); MEAN CORPUSCULAR HGB 30.7 pg (27.0-31.0); MEAN CORPUSCULAR HGB CONC 33.8 g/dl (33.0-37.0); MEAN PLATELET VOLUME 8.9 fl (9.6-12.3); MONO # 0.5 10*3/uL (0.1-1.0); MONO % 6.1 % (3.0-9.0); NEUT # 4.7 10*3/uL (2.3-7.9); NEUT % 59.1 % (47.0-73.0); PLATELET COUNT AUTOMATED 396 10*3/uL (130-400); RED CELL DISTRI WIDTH 13.8 % (0-14.5); WHITE BLOOD COUNT 7.9 10*3/uL (4.8-10.8)
[2018-11-05 20:32] VITALS: BP 192/98
[2018-11-05 20:45] LABS: ALBUMIN 3.6 gm/dl (3.1-4.5); ALKALINE PHOSPHATASE 44 U/L (45-117); BUN 10 mg/dl (7-24); CHLORIDE 104 mmol/L (98-107); CREATININE 1.13 mg/dL (0.55-1.02); POTASSIUM 3.6 mmol/L (3.5-5.1); SGOT/AST 15 IU/L (3-35); SGPT/ALT 35 U/L (12-78); SODIUM 139 mmol/L (136-145); TOTAL PROTEIN 7.6 gm/dL (6.4-8.2)
[2018-11-05 21:10] VITALS: BP 157/82
[2018-11-05 21:31] VITALS: BP 151/86
[2018-11-05 22:24] VITALS: BP 132/78
[2018-11-06 00:10] VITALS: BP 149/98
--- NOTE | 2018-11-06 00:10 | NUR ---
3EA 37, admitted to , under the services of DONOVAN Brito DO with a diagnosis of ACCELERATED HYPERTENSION, CHRONIC KIDNEY DISEASE, CHF. Chief complaint is DIZZINESS, LIGHTHEADEDNESS, OCCASIONAL SOB. Patient arrived via ambulatory from ER. Monitor applied. Initial assessment completed. Vital signs taken and recorded. DONOVAN BRITO DO notified of admission to the unit. Orders received. See assessment for past medical history, medications and allergies. Patient and/or family oriented to unit. [address] visitation policy reviewed. Clothing/patient valuable form completed. PT HAS SOME SKIN INTEGRITIES, RT GROIN EXCORIATION/REDNESS, LEFT BREAST EXCORIATION/REDNESS, BOIL ON STOMACH, OLD BOIL SITE ON STOMACH, AND PT IS CURRENTLY SUN-BURNT W/ SOME PEELING. PT HAS NO COMPLAINTS OF DIZZINESS, SOB, OR LIGHTHEADEDNESS CURRENTLY. PT RESTING IN BED. LINDSEY ROLLINS
--- NOTE | 2018-11-06 00:48 | NUR ---
CALLED AND NOTIFIED HOSPITALIST THAT WE NEED ADMISSION ORDERS AND THAT THE MED REQ WAS UP TO DATE.
--- NOTE | 2018-11-06 03:00 | NUR ---
24 HR chart check completed.
--- NOTE | 2018-11-06 06:00 | NUR ---
BIGG BROWN [id number] Please refer to the physician's history and physical for past medical history, comorbid conditions, and allergies. Diagnosis: ACCELERATED HYPERTENSION, CHF, CHRONIC KIDNEY Chris Score: 23,LOW OR NO RISK WOUND DESCRIPTIONS: Wound Number: 1 Right groin red satelitte areas noted. No draiange at time of assessment. Patient states the area continues to be itchy and she follows with this outpatient and her provider wants her to follow up with dermatology. Wound Number: 2 Left breast red satelitte areas noted. No draiange at time of assessment. Patient states the area continues to be itchy and she follows with this outpatient and her provider wants her to follow up with dermatology. Surface the patient is resting on: Isoflex SKIN PREVENTION RECOMMENDATION: 1. Pressure redistribution support surface as appropriate 2. Elevate heels 3. Remove boots/TEDS every shift and reapply 4. Head of bed 30 degrees as tolerated 5. Assess nutrition and hydration 6. Manage moisture 7. Avoid the use of containment devices while in bed 8. Use absorptive products on surfaces limit layers of linens on bed 9. Turn and reposition every 1-2 hours in bed and every 1 hour in chair as tolerated 10. Weight shifts every 15 minutes while up in chair 11. Offloading with pillows or device to keep heels elevated off bed 12. Monitor skin at least every shift 13. Inspect under medical devices twice a day WOUND TREATMENT RECOMMENDATIONS: D/C nystatin cream. Continue nystatin powder q 12 hour.
[2018-11-06 06:30] LABS: BASO # 0.1 10*3/uL (0.0-0.1); BASO % 0.7 % (0.0-1.0); EOS # 0.2 10*3/uL (0.0-0.4); EOS % 2.5 % (1.0-4.0); HEMATOCRIT 39.1 % (37.0-47.0); HEMOGLOBIN 13.1 g/dl (12.0-16.0); LYMPH # 1.7 10*3/uL (1.3-4.4); LYMPH % 22.4 % (27.0-41.0); MEAN CELL VOLUME 90.3 fl (81.0-99.0); MEAN CORPUSCULAR HGB 30.3 pg (27.0-31.0); MEAN CORPUSCULAR HGB CONC 33.5 g/dl (33.0-37.0); MEAN PLATELET VOLUME 8.9 fl (9.6-12.3); MONO # 0.5 10*3/uL (0.1-1.0); MONO % 6.5 % (3.0-9.0); NEUT # 5.1 10*3/uL (2.3-7.9); NEUT % 67.5 % (47.0-73.0); PLATELET COUNT AUTOMATED 351 10*3/uL (130-400); RED BLOOD COUNT 4.33 10*6/uL (4.10-5.10); RED CELL DISTRI WIDTH 13.8 % (0-14.5); WHITE BLOOD COUNT 7.6 10*3/uL (4.8-10.8)
--- NOTE | 2018-11-06 06:46 | NUR ---
CARDIOLOGY FOR WAS COMPLETED.
[2018-11-06 06:58] LABS: BUN 11 mg/dl (7-24); CHLORIDE 105 mmol/L (98-107); CREATININE 1.06 mg/dL (0.55-1.02); POTASSIUM 3.4 mmol/L (3.5-5.1); SODIUM 140 mmol/L (136-145)
[2018-11-06 08:00] VITALS: BP 144/90
--- NOTE | 2018-11-06 08:23 | NUR ---
PT MEDICATED WITH TYLENOL FOR C/O HEADACHE AT THIS TIME. WILL MONITOR FOR EFFECTIVENESS.
--- NOTE | 2018-11-06 09:45 | NUR ---
PER PATIENT, TYLENOL HAS BEEN EFFECTIVE. NO FURTHER COMPLAINTS AT THIS TIME.
[2018-11-06 12:00] VITALS: BP 136/81
--- NOTE | 2018-11-06 12:49 | NUR ---
Locomotive Repairer Diesel in to talk to patient. Patient states lives at HOME with FRIEND. There are 2 steps in the home. Physician: DUTCH Pharmacy: [facility] [place] [facility]: NO Patient's level of ADLs: INDEPENDENT Patient has working utilities: YES DME: NONE Follow-up physician's appointment after d/c: WILL BE MADE BY HOSPITALIST NURSE DIRECTOR ON DISCHARGE Does patient want to access PORTAL?: NO Discharge plan PT STATES SHE LIVES AT HOME WITH FAMILY AND IS INDEPENDENT IN HER CARE. DENIES SHE WILL HAVE ANY NEEDS ON DISCHARGE. WILL CONTINUE TO FOLLOW. STATES SHE WILL HAVE A RIDE HOME.. ANTONIO ESPINOZA
[2018-11-06 16:00] VITALS: BP 127/84
[2018-11-06 16:36] LABS: BILIRUBIN NEGATIVE (NEGATIVE); BLOOD TRACE-INTACT (NEGATIVE); CLARITY CLEAR (CLEAR); COLOR YELLOW (YELLOW); GLUCOSE NEGATIVE (NEGATIVE); KETONE NEGATIVE (NEGATIVE); LEUKO ESTERASE NEGATIVE (NEGATIVE); NITRITE NEGATIVE (NEGATIVE); PH 5.5 (5.0-9.0); UROBILINOGEN 0.2 E.U./dl (0.2-1.0)
[2018-11-06 16:48] LABS: BACTERIA 1+; MUCOUS 1+; WBC 0-2 wbc/hpf (0-5)
[2018-11-06 16:52] LABS: TROPONIN I < 0.015 ng/ml (<0.045)
[2018-11-06 20:00] VITALS: BP 105/79
[2018-11-07] VITALS: BP 116/77
--- NOTE | 2018-11-07 02:11 | NUR ---
24 HR chart check completed.
--- NOTE | 2018-11-07 08:48 | NUR ---
DOWN FOR STRESS TEST.
--- NOTE | 2018-11-07 09:00 | NUR ---
INFORMED CONSENT OBTAINED FOR AN EXERCISE STANDARD STRESS TEST WITH DR. DYER. RESTING EKG SINUS LEIGH WITH A HT RT OF 57 AND A BP OF 112/64 SUPINE. STANDING HT RT OF 72, WITH A BP OF 106/70. PT COMPLETED 6:23 SECONDS OF A KARLI PROTOCOL WITH THE COMPLETION OF 23 SECONDS INTO STAGE III. AT 3.4 MPH AND 14% GRADE. REACHED A PEAK HT RT OF 128, WHICH IS 71% OF PREDICTED MAX WITH A BP OF 158/82. TEST TERMINATED DUE TO SHORTNESS OF BREATH AND FATIGUE. HAD NO CHEST PAIN VOICED. EKG NONDIAGNOSTIC. HAS A FAIR EXERCISE TOLERANCE. LAST RECOVERY HT RT OF 84 WITH A BP OF 104/74. PT TAKEN BACK TO HER ROOM IN STABLE CONDITION.
--- NOTE | 2018-11-07 09:54 | NUR ---
BACK TO ROOM FOLLOWING STRESS TEST.
[2018-11-07 12:00] VITALS: BP 124/73
--- NOTE | 2018-11-07 13:28 | NUR ---
PT STATES SHE WILL HAVE NO NEEDS ON DISCHARGE. WILL CONTINUE TO FOLLOW.
[2018-11-07 16:00] VITALS: BP 113/69
[2018-11-07] MEDS ORDERED: LISINOPRIL10 M1 PO (16:20)
--- NOTE | 2018-11-07 16:56 | NUR ---
Discharge instructions reviewed with patient/family. Patient receptive and verbalizes understanding. Follow-up care arranged. Written instructions given to patient/family. JAZLYN GAN
== END 2018-11-07 16:56 | disposition home or self-care (01) | DRG 304 ==
LOC: ED 19:25 → EDHOLD 23:15 → 5E 23:15
PROVIDERS: Emergency Medicine Emergency Medical Services; Family Medicine; Internal Medicine; Internal Medicine Cardiovascular Disease; ADMIT Emergency Medicine
DX: I16.0 Hypertensive urgency (principal); N17.0 Acute kidney failure with tubular necrosis; Z68.41 Body mass index [BMI] 40.0-44.9, adult; I13.0 Hypertensive heart and chronic kidney disease with heart failure and stage 1 through stage 4 chronic kidney disease, or unspecified chronic kidney disease; N18.3 Chronic kidney disease, stage 3 (moderate); R73.9 Hyperglycemia, unspecified; F32.9 Major depressive disorder, single episode, unspecified; E03.9 Hypothyroidism, unspecified; K21.9 Gastro-esophageal reflux disease without esophagitis; G47.33 Obstructive sleep apnea (adult) (pediatric); E66.01 Morbid (severe) obesity due to excess calories; I50.9 Heart failure, unspecified; J45.909 Unspecified asthma, uncomplicated; Z90.49 Acquired absence of other specified parts of digestive tract; Z98.51 Tubal ligation status; Z82.49 Family history of ischemic heart disease and other diseases of the circulatory system; Z83.49 Family history of other endocrine, nutritional and metabolic diseases; Z80.0 Family history of malignant neoplasm of digestive organs; Z83.6 Family history of other diseases of the respiratory system

== ENCOUNTER 2018-11-22 19:49 | Emergency (ER) | payer OTHER ==
[~2018-11-22] VITALS: Ht 165.1 cm; Wt 113.4 kg
--- NOTE | ~2018-11-22 | EKG ---
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
[~2018-11-22 19:49] MED LIST changes: +LISINOPRIL10 M1 PO
[2018-11-22 19:50] VITALS: BP 171/92
[2018-11-22 21:01] LABS: BASO # 0.1 10*3/uL (0.0-0.1); BASO % 0.8 % (0.0-1.0); EOS # 0.1 10*3/uL (0.0-0.4); EOS % 1.4 % (1.0-4.0); HEMATOCRIT 41.1 % (37.0-47.0); HEMOGLOBIN 13.4 g/dl (12.0-16.0); LYMPH # 1.6 10*3/uL (1.3-4.4); LYMPH % 22.4 % (27.0-41.0); MEAN CELL VOLUME 92.4 fl (81.0-99.0); MEAN CORPUSCULAR HGB 30.1 pg (27.0-31.0); MEAN CORPUSCULAR HGB CONC 32.6 g/dl (33.0-37.0); MEAN PLATELET VOLUME 9.2 fl (9.6-12.3); MONO # 0.4 10*3/uL (0.1-1.0); MONO % 5.2 % (3.0-9.0); NEUT # 5.1 10*3/uL (2.3-7.9); NEUT % 69.9 % (47.0-73.0); PLATELET COUNT AUTOMATED 346 10*3/uL (130-400); RED BLOOD COUNT 4.45 10*6/uL (4.10-5.10); RED CELL DISTRI WIDTH 13.8 % (0-14.5); WHITE BLOOD COUNT 7.3 10*3/uL (4.8-10.8)
[2018-11-22 21:16] LABS: BUN 11 mg/dl (7-24); CHLORIDE 104 mmol/L (98-107); CREATININE 1.17 mg/dL (0.55-1.02); LIPASE 83 U/L (73-393); POTASSIUM 3.6 mmol/L (3.5-5.1); SODIUM 136 mmol/L (136-145)
[2018-11-22 21:20] LABS: TROPONIN I < 0.015 ng/ml (<0.045)
[2018-11-22] MEDS ORDERED: PROTONIX40 MG PO (22:21)
== END 2018-11-22 22:32 | disposition home or self-care (01) ==
LOC: ED 19:49
PROVIDERS: Emergency Medicine Emergency Medical Services
DX: K21.9 Gastro-esophageal reflux disease without esophagitis (principal); F41.1 Generalized anxiety disorder; M54.6 Pain in thoracic spine; J45.909 Unspecified asthma, uncomplicated; F32.9 Major depressive disorder, single episode, unspecified; E03.9 Hypothyroidism, unspecified; E66.01 Morbid (severe) obesity due to excess calories; Z68.41 Body mass index [BMI] 40.0-44.9, adult; I12.9 Hypertensive chronic kidney disease with stage 1 through stage 4 chronic kidney disease, or unspecified chronic kidney disease; N18.3 Chronic kidney disease, stage 3 (moderate); Z79.899 Other long term (current) drug therapy

== ENCOUNTER 2019-04-28 16:36 | Emergency (ER) | payer OTHER ==
[~2019-04-28] VITALS: Ht 165.1 cm; Wt 115.7 kg
[~2019-04-28 16:36] MED LIST changes: +PROTONIX40 MG PO
[2019-04-28 16:38] VITALS: BP 134/82
[2019-04-28 17:56] LABS: BASO # 0.1 10*3/uL (0.0-0.1); BASO % 0.9 % (0.0-1.0); EOS # 0.2 10*3/uL (0.0-0.4); EOS % 2.4 % (1.0-4.0); HEMATOCRIT 37.1 % (37.0-47.0); HEMOGLOBIN 11.3 g/dl (12.0-16.0); LYMPH # 1.4 10*3/uL (1.3-4.4); LYMPH % 20.5 % (27.0-41.0); MEAN CELL VOLUME 85.1 fl (81.0-99.0); MEAN CORPUSCULAR HGB 25.9 pg (27.0-31.0); MEAN CORPUSCULAR HGB CONC 30.5 g/dl (33.0-37.0); MEAN PLATELET VOLUME 9.2 fl (9.6-12.3); MONO # 0.4 10*3/uL (0.1-1.0); MONO % 6.3 % (3.0-9.0); NEUT # 4.9 10*3/uL (2.3-7.9); NEUT % 69.6 % (47.0-73.0); PLATELET COUNT AUTOMATED 406 10*3/uL (130-400); RED BLOOD COUNT 4.36 10*6/uL (4.10-5.10)
[2019-04-28 18:14] LABS: ALBUMIN 3.7 gm/dl (3.1-4.5); ALKALINE PHOSPHATASE 43 U/L (45-117); BUN 12 mg/dl (7-24); CHLORIDE 105 mmol/L (98-107); CREATININE 1.16 mg/dL (0.55-1.02); POTASSIUM 3.7 mmol/L (3.5-5.1); SGOT/AST 17 IU/L (3-35); SGPT/ALT 33 U/L (12-78); SODIUM 140 mmol/L (136-145); TOTAL PROTEIN 7.4 gm/dL (6.4-8.2)
== END 2019-04-28 18:23 | disposition home or self-care (01) ==
LOC: ED 16:36
PROVIDERS: Physician Assistant
DX: R42 Dizziness and giddiness (principal); I10 Essential (primary) hypertension; Z79.899 Other long term (current) drug therapy

== ENCOUNTER → 2019-06-12 | Outpatient (CLI) | payer OTHER | END | disposition home or self-care (01) | LOC: MAMMO 05-19 08:00 | DX: Z12.31 Encounter for screening mammogram for malignant neoplasm of breast (principal); N93.9 Abnormal uterine and vaginal bleeding, unspecified ==

== ENCOUNTER → 2019-06-23 | Outpatient (CLI) | payer OTHER ==
[2019-06-23 16:47] LABS: BASO % 0.6 % (0.0-1.0); EOS # 0.2 10*3/uL (0.0-0.4); EOS % 3.5 % (1.0-4.0); HEMATOCRIT 35.9 % (37.0-47.0); HEMOGLOBIN 10.4 g/dl (12.0-16.0); LYMPH # 1.6 10*3/uL (1.3-4.4); LYMPH % 23.3 % (27.0-41.0); MEAN CELL VOLUME 80.5 fl (81.0-99.0); MEAN CORPUSCULAR HGB 23.3 pg (27.0-31.0); MEAN PLATELET VOLUME 9.2 fl (9.6-12.3); MONO # 0.5 10*3/uL (0.1-1.0); MONO % 6.5 % (3.0-9.0); NEUT # 4.5 10*3/uL (2.3-7.9); NEUT % 65.8 % (47.0-73.0); PLATELET COUNT AUTOMATED 403 10*3/uL (130-400); RED BLOOD COUNT 4.46 10*6/uL (4.10-5.10); RED CELL DISTRI WIDTH 15.7 % (0-14.5); WHITE BLOOD COUNT 6.9 10*3/uL (4.8-10.8)
== END | disposition home or self-care (01) ==
LOC: LAB 16:04
PROVIDERS: Obstetrics & Gynecology
DX: I10 Essential (primary) hypertension (principal); Z01.818 Encounter for other preprocedural examination

== ENCOUNTER 2019-07-26 19:03 | Emergency (ER) | payer OTHER ==
[~2019-07-26] VITALS: Ht 165.1 cm; Wt 113.4 kg
[2019-07-26 19:10] VITALS: BP 169/96
== END 2019-07-26 20:57 | disposition home or self-care (01) ==
LOC: ED 19:03
DX: S93.402A Sprain of unspecified ligament of left ankle, initial encounter (principal); I10 Essential (primary) hypertension; Z79.899 Other long term (current) drug therapy; Z79.2 Long term (current) use of antibiotics; Z90.49 Acquired absence of other specified parts of digestive tract; W10.9XXA Fall (on) (from) unspecified stairs and steps, initial encounter; Y93.02 Activity, running; Y92.098 Other place in other non-institutional residence as the place of occurrence of the external cause; Y99.8 Other external cause status

== ENCOUNTER 2019-08-17 15:45 | Emergency (ER) | payer OTHER ==
[~2019-08-17] VITALS: Wt 113.4 kg
== END 2019-08-17 16:59 | disposition home or self-care (01) ==
LOC: ED 15:45
DX: S93.402A Sprain of unspecified ligament of left ankle, initial encounter (principal); I10 Essential (primary) hypertension; Z79.899 Other long term (current) drug therapy; Z79.2 Long term (current) use of antibiotics; Z90.49 Acquired absence of other specified parts of digestive tract; W18.43XA Slipping, tripping and stumbling without falling due to stepping from one level to another, initial encounter; Y93.89 Activity, other specified; Y92.89 Other specified places as the place of occurrence of the external cause; Y99.8 Other external cause status

== ENCOUNTER 2020-01-20 01:36 | Emergency (ER) | payer OTHER ==
[~2020-01-20] VITALS: Ht 165.1 cm; Wt 115.7 kg
[2020-01-20 02:33] LABS: BILIRUBIN NEGATIVE; BLOOD NEGATIVE (NEGATIVE); CLARITY CLOUDY (CLEAR); COLOR YELLOW (YELLOW); GLUCOSE NEGATIVE; KETONE NEGATIVE; LEUKO ESTERASE NEGATIVE (NEGATIVE); NITRITE NEGATIVE (NEGATIVE); PH 5.5 (4.5-8.0); UROBILINOGEN 0.2 E.U./dl (0.0-1.0)
[2020-01-20 02:51] LABS: BACTERIA 1+; MUCOUS 1+; RBC 0-2 rbc/hpf (0-2)
[2020-01-20 03:04] VITALS: BP 160/83
[2020-01-20] MEDS ORDERED: Nizoral 2%15 GM T (03:34)
[2020-01-20] MEDS ORDERED: CIPRO500 MG PO (03:34)
== END 2020-01-20 03:44 | disposition home or self-care (01) ==
LOC: ED 01:36
PROVIDERS: Emergency Medicine
DX: B37.2 Candidiasis of skin and nail (principal); L73.9 Follicular disorder, unspecified; K21.9 Gastro-esophageal reflux disease without esophagitis; F32.9 Major depressive disorder, single episode, unspecified; I12.9 Hypertensive chronic kidney disease with stage 1 through stage 4 chronic kidney disease, or unspecified chronic kidney disease; N18.3 Chronic kidney disease, stage 3 (moderate); E03.9 Hypothyroidism, unspecified; G47.33 Obstructive sleep apnea (adult) (pediatric); Z90.49 Acquired absence of other specified parts of digestive tract; Z79.899 Other long term (current) drug therapy

== ENCOUNTER 2020-02-04 22:57 | Emergency (ER) | payer OTHER ==
[~2020-02-04] VITALS: Ht 165.1 cm; Wt 113.4 kg
[~2020-02-04 22:57] MED LIST changes: +CIPRO500 MG PO; +Nizoral 2%15 GM T
[2020-02-04 23:37] VITALS: BP 174/78
[2020-02-05] MEDS ORDERED: KEFLEX500 M1 PO (01:17)
[2020-02-05] MEDS ORDERED: PREDNISONE20 M1 PO (01:17)
== END 2020-02-05 01:34 | disposition home or self-care (01) ==
LOC: ED 22:57
DX: R21 Rash and other nonspecific skin eruption (principal); Z79.899 Other long term (current) drug therapy

== ENCOUNTER 2020-02-11 12:03 | Emergency (ER) | payer OTHER ==
[~2020-02-11] VITALS: Ht 165.1 cm; Wt 113.4 kg
[~2020-02-11 12:03] MED LIST changes: +PREDNISONE20 M1 PO
[2020-02-11 12:06] VITALS: BP 157/95
[2020-02-11] MEDS ORDERED: PREDNISONE20 M1 PO (13:31)
[2020-02-11] MEDS ORDERED: TESSALON PERLE100 M1 PO (13:31)
[2020-02-11] MEDS ORDERED: PROVENTIL HFA6.7 GM INH (13:31)
== END 2020-02-11 13:50 | disposition home or self-care (01) ==
LOC: ED 12:03
DX: J45.901 Unspecified asthma with (acute) exacerbation (principal); Z79.899 Other long term (current) drug therapy

== ENCOUNTER 2020-03-10 12:51 | Emergency (ER) | payer OTHER ==
[~2020-03-10] VITALS: Wt 113.4 kg
[~2020-03-10 12:51] MED LIST changes: +PROVENTIL HFA6.7 GM INH
[2020-03-10 12:59] VITALS: BP 168/83
[2020-03-10] MEDS ORDERED: MEDROL DOSEPAK4 MG PO (15:21)
== END 2020-03-10 15:26 | disposition home or self-care (01) ==
LOC: ED 12:51
DX: J40 Bronchitis, not specified as acute or chronic (principal)

== ENCOUNTER → 2020-05-10 | Outpatient (CLI) | payer OTHER ==
[2020-05-10 12:39] LABS: BASO # 0.1 10*3/uL (0.0-0.1); BASO % 0.8 % (0.0-1.0); EOS # 0.3 10*3/uL (0.0-0.4); EOS % 3.9 % (1.0-4.0); HEMATOCRIT 40.2 % (37.0-47.0); LYMPH # 1.6 10*3/uL (1.3-4.4); LYMPH % 22.2 % (27.0-41.0); MEAN CELL VOLUME 76.6 fl (81.0-99.0); MEAN CORPUSCULAR HGB 22.1 pg (27.0-31.0); MEAN CORPUSCULAR HGB CONC 28.9 g/dl (33.0-37.0); MONO # 0.4 10*3/uL (0.1-1.0); MONO % 5.7 % (3.0-9.0); NEUT # 4.8 10*3/uL (2.3-7.9); NEUT % 67.1 % (47.0-73.0); PLATELET COUNT AUTOMATED 460 10*3/uL (130-400); RED BLOOD COUNT 5.25 10*6/uL (4.10-5.10); WHITE BLOOD COUNT 7.2 10*3/uL (4.8-10.8)
[2020-05-10 13:19] LABS: ALBUMIN 3.7 gm/dl (3.1-4.5); BUN 8 mg/dl (7-24); CHLORIDE 107 mmol/L (98-107); SGOT/AST 10 IU/L (3-35); SGPT/ALT 28 U/L (12-78); SODIUM 139 mmol/L (136-145); TOTAL PROTEIN 7.8 gm/dL (6.4-8.2)
[2020-05-10 13:25] LABS: ALKALINE PHOSPHATASE 47 U/L (45-117); CREATININE 1.07 mg/dL (0.55-1.02)
[2020-05-12 18:06] LABS: AST (SGOT) P5P 18 IU/L (0-40); CHOLESTEROL, TOTAL 173 mg/dL (100-199); GLUCOSE, SERUM 82 mg/dL (65-99); TRIGLYCERIDES 168 mg/dL (0-149)
== END | disposition home or self-care (01) ==
LOC: LAB 12:01
PROVIDERS: ATTEND Nurse Practitioner Family
DX: K76.0 Fatty (change of) liver, not elsewhere classified (principal); R16.1 Splenomegaly, not elsewhere classified; I10 Essential (primary) hypertension

== ENCOUNTER 2020-07-04 22:25 | Emergency (ER) | payer OTHER ==
[~2020-07-04] VITALS: Ht 165.1 cm; Wt 117.9 kg
[2020-07-04 23:23] LABS: BASO # 0.1 10*3/uL (0.0-0.1); BASO % 0.9 % (0.0-1.0); EOS # 0.2 10*3/uL (0.0-0.4); EOS % 3.4 % (1.0-4.0); HEMATOCRIT 38.9 % (37.0-47.0); LYMPH # 1.8 10*3/uL (1.3-4.4); MEAN CELL VOLUME 77.3 fl (81.0-99.0); MEAN CORPUSCULAR HGB 23.3 pg (27.0-31.0); MEAN CORPUSCULAR HGB CONC 30.1 g/dl (33.0-37.0); MEAN PLATELET VOLUME 8.7 fl (9.6-12.3); MONO # 0.4 10*3/uL (0.1-1.0); MONO % 6.2 % (3.0-9.0); NEUT # 4.2 10*3/uL (2.3-7.9); NEUT % 62.2 % (47.0-73.0); PLATELET COUNT AUTOMATED 400 10*3/uL (130-400); RED BLOOD COUNT 5.03 10*6/uL (4.10-5.10); RED CELL DISTRI WIDTH 17.3 % (0-14.5); WHITE BLOOD COUNT 6.8 10*3/uL (4.8-10.8)
[2020-07-04 23:40] LABS: ALBUMIN 3.7 gm/dl (3.1-4.5); ALKALINE PHOSPHATASE 46 U/L (45-117); BUN 13 mg/dl (7-24); CHLORIDE 106 mmol/L (98-107); CREATININE 0.97 mg/dL (0.55-1.02); POTASSIUM 3.7 mmol/L (3.5-5.1); SGOT/AST 10 IU/L (3-35); SGPT/ALT 27 U/L (12-78); SODIUM 139 mmol/L (136-145); TOTAL PROTEIN 7.5 gm/dL (6.4-8.2)
[2020-07-04 23:41] LABS: TROPONIN I < 0.015 ng/ml (<0.045)
[2020-07-05 02:24] VITALS: BP 135/73
== END 2020-07-05 02:37 | disposition home or self-care (01) ==
LOC: ED 22:25
PROVIDERS: Emergency Medicine
DX: R07.89 Other chest pain (principal); M79.89 Other specified soft tissue disorders; I13.0 Hypertensive heart and chronic kidney disease with heart failure and stage 1 through stage 4 chronic kidney disease, or unspecified chronic kidney disease; N18.30 Chronic kidney disease, stage 3 unspecified; I50.9 Heart failure, unspecified; K21.9 Gastro-esophageal reflux disease without esophagitis; J45.909 Unspecified asthma, uncomplicated; F32.9 Major depressive disorder, single episode, unspecified; E03.9 Hypothyroidism, unspecified; E66.01 Morbid (severe) obesity due to excess calories; Z79.899 Other long term (current) drug therapy; Z79.2 Long term (current) use of antibiotics; Z68.41 Body mass index [BMI] 40.0-44.9, adult; Z98.890 Other specified postprocedural states; Z90.49 Acquired absence of other specified parts of digestive tract; Z98.51 Tubal ligation status

== ENCOUNTER 2020-09-19 12:12 | Emergency (ER) | payer OTHER ==
[~2020-09-19] VITALS: Wt 117.9 kg
[2020-09-19 12:26] VITALS: BP 162/89
[2020-09-19] MEDS ORDERED: CYCLOBENZAPRINE5 M3 PO (13:36)
== END 2020-09-19 13:55 | disposition home or self-care (01) ==
LOC: ED 12:12
DX: M79.18 Myalgia, other site (principal); M25.512 Pain in left shoulder; M54.2 Cervicalgia; Z98.890 Other specified postprocedural states; Z98.51 Tubal ligation status; Z90.49 Acquired absence of other specified parts of digestive tract; Z79.899 Other long term (current) drug therapy

== ENCOUNTER 2020-12-06 18:57 | Emergency (ER) | payer OTHER ==
[~2020-12-06] VITALS: Ht 165.1 cm; Wt 117.9 kg
[~2020-12-06 18:57] MED LIST changes: +CYCLOBENZAPRINE5 M3 PO
[2020-12-06 19:59] LABS: BASO # 0.1 10*3/uL (0.0-0.1); BASO % 0.8 % (0.0-1.0); EOS # 0.2 10*3/uL (0.0-0.4); EOS % 2.5 % (1.0-4.0); HEMATOCRIT 40.6 % (37.0-47.0); LYMPH # 1.7 10*3/uL (1.3-4.4); LYMPH % 22.9 % (27.0-41.0); MEAN CELL VOLUME 83.4 fl (81.0-99.0); MEAN CORPUSCULAR HGB 26.1 pg (27.0-31.0); MEAN CORPUSCULAR HGB CONC 31.3 g/dl (33.0-37.0); MEAN PLATELET VOLUME 8.8 fl (9.6-12.3); MONO # 0.4 10*3/uL (0.1-1.0); MONO % 5.5 % (3.0-9.0); NEUT # 4.9 10*3/uL (2.3-7.9); PLATELET COUNT AUTOMATED 363 10*3/uL (130-400); RED BLOOD COUNT 4.87 10*6/uL (4.10-5.10); RED CELL DISTRI WIDTH 16.9 % (0-14.5); WHITE BLOOD COUNT 7.2 10*3/uL (4.8-10.8)
[2020-12-06 20:26] VITALS: BP 160/94
[2020-12-06 20:45] LABS: ALBUMIN 3.7 gm/dl (3.1-4.5); ALKALINE PHOSPHATASE 47 U/L (45-117); BUN 9 mg/dl (7-24); CHLORIDE 106 mmol/L (98-107); CREATININE 1.02 mg/dL (0.55-1.02); POTASSIUM 3.5 mmol/L (3.5-5.1); SGOT/AST 10 IU/L (3-35); SGPT/ALT 30 U/L (12-78); SODIUM 140 mmol/L (136-145); TOTAL PROTEIN 7.3 gm/dL (6.4-8.2)
[2020-12-06 20:46] LABS: TROPONIN I < 0.015 ng/ml (<0.045)
== END 2020-12-06 21:28 | disposition home or self-care (01) ==
LOC: ED 18:57
PROVIDERS: Internal Medicine
DX: R07.89 Other chest pain (principal); R42 Dizziness and giddiness; Z79.899 Other long term (current) drug therapy

== ENCOUNTER 2021-03-28 17:31 | Emergency (ER) | payer OTHER ==
[2021-03-28] MEDS ORDERED: AMOXICILLIN500 M2 PO (22:48)
[2021-03-28] MEDS ORDERED: FLONASE ALLERG9.9 ML NAS (22:48)
[2021-03-28 22:59] VITALS: BP 146/72
== END 2021-03-28 23:01 | disposition home or self-care (01) ==
LOC: ED 17:31
DX: J32.9 Chronic sinusitis, unspecified (principal); Z20.822 Contact with and (suspected) exposure to COVID-19; Z79.899 Other long term (current) drug therapy

== ENCOUNTER 2021-04-24 15:03 | Emergency (ER) | payer OTHER ==
[~2021-04-24] VITALS: Ht 165.1 cm; Wt 118.8 kg
[2021-04-24 15:14] VITALS: BP 149/78
[2021-04-24] MEDS ORDERED: FLUOXETINE HCL10 MG PO (15:17)
[2021-04-24 16:24] LABS: BASO % 0.4 % (0.0-1.0); HEMATOCRIT 43.9 % (37.0-47.0); LYMPH # 0.6 10*3/uL (1.3-4.4); LYMPH % 24.1 % (27.0-41.0); MEAN CELL VOLUME 87.3 fl (81.0-99.0); MEAN CORPUSCULAR HGB 27.8 pg (27.0-31.0); MEAN CORPUSCULAR HGB CONC 31.9 g/dl (33.0-37.0); MONO # 0.3 10*3/uL (0.1-1.0); MONO % 10.4 % (3.0-9.0); NEUT # 1.6 10*3/uL (2.3-7.9); NEUT % 64.7 % (47.0-73.0); PLATELET COUNT AUTOMATED 271 10*3/uL (130-400); RED BLOOD COUNT 5.03 10*6/uL (4.10-5.10); RED CELL DISTRI WIDTH 14.9 % (0-14.5); WHITE BLOOD COUNT 2.5 10*3/uL (4.8-10.8)
[2021-04-24 16:38] LABS: ALBUMIN 3.6 gm/dl (3.1-4.5); ALKALINE PHOSPHATASE 32 U/L (45-117); BUN 7 mg/dl (7-24); CHLORIDE 105 mmol/L (98-107); CREATININE 1.15 mg/dL (0.55-1.02); POTASSIUM 3.5 mmol/L (3.5-5.1); SGOT/AST 23 IU/L (3-35); SGPT/ALT 29 U/L (12-78); SODIUM 138 mmol/L (136-145); TOTAL PROTEIN 7.6 gm/dL (6.4-8.2)
[2021-04-24] MEDS ORDERED: DECADRON6 M1 PO (18:26)
== END 2021-04-24 18:52 | disposition home or self-care (01) ==
LOC: ED 15:03
PROVIDERS: Internal Medicine
DX: J12.9 Viral pneumonia, unspecified (principal); Z20.822 Contact with and (suspected) exposure to COVID-19

== ENCOUNTER 2021-08-02 16:24 | Emergency (ER) | payer OTHER ==
[~2021-08-02] VITALS: Ht 165.1 cm; Wt 117.9 kg
[~2021-08-02 16:24] MED LIST changes: +DECADRON6 M1 PO; +FLUOXETINE HCL10 MG PO
[2021-08-02 17:12] VITALS: BP 179/84
== END 2021-08-02 20:32 | disposition home or self-care (01) ==
LOC: ED 16:24
DX: M25.572 Pain in left ankle and joints of left foot (principal); Z79.899 Other long term (current) drug therapy; Z98.890 Other specified postprocedural states; Z90.49 Acquired absence of other specified parts of digestive tract; Z98.51 Tubal ligation status

== ENCOUNTER 2021-08-20 14:50 | Emergency (ER) | payer OTHER ==
[~2021-08-20] VITALS: Ht 165.1 cm; Wt 117.9 kg
[2021-08-20 15:09] VITALS: BP 184/56
[2021-08-20] MEDS ORDERED: SEREVENT DISKU50 MCG INH (15:11)
[2021-08-20 15:35] LABS: BASO % 0.5 % (0.0-1.0); EOS # 0.3 10*3/uL (0.0-0.4); EOS % 3.4 % (1.0-4.0); HEMATOCRIT 40.3 % (37.0-47.0); LYMPH # 1.9 10*3/uL (1.3-4.4); LYMPH % 24.7 % (27.0-41.0); MEAN CELL VOLUME 86.9 fl (81.0-99.0); MEAN CORPUSCULAR HGB 29.5 pg (27.0-31.0); MONO # 0.6 10*3/uL (0.1-1.0); MONO % 7.1 % (3.0-9.0); NEUT # 4.9 10*3/uL (2.3-7.9); PLATELET COUNT AUTOMATED 361 10*3/uL (130-400); RED BLOOD COUNT 4.64 10*6/uL (4.10-5.10); RED CELL DISTRI WIDTH 14.6 % (0-14.5); WHITE BLOOD COUNT 7.7 10*3/uL (4.8-10.8)
== END 2021-08-20 18:12 | disposition home or self-care (01) ==
LOC: ED 14:50
PROVIDERS: Physician Assistant
DX: R05.9 Cough, unspecified (principal); R53.83 Other fatigue; Z79.899 Other long term (current) drug therapy; Z98.890 Other specified postprocedural states; Z90.49 Acquired absence of other specified parts of digestive tract; Z98.51 Tubal ligation status

== ENCOUNTER 2021-12-08 19:21 | Emergency (ER) | payer OTHER ==
[~2021-12-08] VITALS: Ht 167.6 cm; Wt 99.8 kg
[~2021-12-08 19:21] MED LIST changes: +SEREVENT DISKU50 MCG INH
[2021-12-08 19:45] LABS: BASO # 0.1 10*3/uL (0.0-0.1); BASO % 0.6 % (0.0-1.0); EOS # 0.2 10*3/uL (0.0-0.4); EOS % 1.9 % (1.0-4.0); LYMPH # 1.8 10*3/uL (1.3-4.4); LYMPH % 21.9 % (27.0-41.0); MEAN CELL VOLUME 87.8 fl (81.0-99.0); MEAN CORPUSCULAR HGB 29.5 pg (27.0-31.0); MEAN CORPUSCULAR HGB CONC 33.6 g/dl (33.0-37.0); MEAN PLATELET VOLUME 8.9 fl (9.6-12.3); MONO # 0.6 10*3/uL (0.1-1.0); MONO % 6.7 % (3.0-9.0); NEUT # 5.7 10*3/uL (2.3-7.9); NEUT % 68.8 % (47.0-73.0); PLATELET COUNT AUTOMATED 371 10*3/uL (130-400); RED BLOOD COUNT 5.01 10*6/uL (4.10-5.10); RED CELL DISTRI WIDTH 13.6 % (0-14.5); WHITE BLOOD COUNT 8.3 10*3/uL (4.8-10.8)
[2021-12-08 19:59] LABS: ACT PARTIAL THROMBO TIME 28.8 SECONDS (20.0-32.1); INTERNATIONAL NORM RATIO 0.9 (2.0-3.5)
[2021-12-08 20:07] LABS: CREATININE 1.24 mg/dL (0.55-1.02); POTASSIUM 3.7 mmol/L (3.5-5.1); TOTAL PROTEIN 7.6 gm/dL (6.4-8.2)
[2021-12-09 00:42] VITALS: BP 140/76
== END 2021-12-09 00:42 | disposition home or self-care (01) ==
LOC: ED 19:21
PROVIDERS: Emergency Medicine
DX: R07.9 Chest pain, unspecified (principal); E03.9 Hypothyroidism, unspecified; K21.9 Gastro-esophageal reflux disease without esophagitis; J45.909 Unspecified asthma, uncomplicated; I12.9 Hypertensive chronic kidney disease with stage 1 through stage 4 chronic kidney disease, or unspecified chronic kidney disease; N18.30 Chronic kidney disease, stage 3 unspecified; E66.9 Obesity, unspecified; Z79.899 Other long term (current) drug therapy; Z98.890 Other specified postprocedural states; Z90.49 Acquired absence of other specified parts of digestive tract; Z98.51 Tubal ligation status

== ENCOUNTER 2022-01-07 23:50 | Emergency (ER) | payer OTHER ==
[2022-01-07 23:56] VITALS: BP 170/68
[2022-01-08 01:48] LABS: BASO % 0.5 % (0.0-1.0); EOS # 0.1 10*3/uL (0.0-0.4); EOS % 0.8 % (1.0-4.0); HEMATOCRIT 43.9 % (37.0-47.0); LYMPH # 0.5 10*3/uL (1.3-4.4); LYMPH % 5.2 % (27.0-41.0); MEAN CELL VOLUME 88.2 fl (81.0-99.0); MEAN CORPUSCULAR HGB 29.5 pg (27.0-31.0); MEAN CORPUSCULAR HGB CONC 33.5 g/dl (33.0-37.0); MEAN PLATELET VOLUME 8.6 fl (9.6-12.3); MONO # 0.6 10*3/uL (0.1-1.0); MONO % 7.2 % (3.0-9.0); NEUT # 7.7 10*3/uL (2.3-7.9); NEUT % 86.1 % (47.0-73.0); PLATELET COUNT AUTOMATED 314 10*3/uL (130-400); RED BLOOD COUNT 4.98 10*6/uL (4.10-5.10); RED CELL DISTRI WIDTH 13.4 % (0-14.5); WHITE BLOOD COUNT 8.9 10*3/uL (4.8-10.8)
[2022-01-08 02:06] LABS: ALKALINE PHOSPHATASE 33 U/L (45-117); BUN 6 mg/dl (7-24); CHLORIDE 105 mmol/L (98-107); CREATININE 1.12 mg/dL (0.55-1.02); LIPASE 64 U/L (73-393); POTASSIUM 3.8 mmol/L (3.5-5.1); SGOT/AST 12 IU/L (3-35); SGPT/ALT 23 U/L (12-78); SODIUM 137 mmol/L (136-145); TOTAL PROTEIN 7.5 gm/dL (6.4-8.2)
[2022-01-08 02:08] LABS: ACT PARTIAL THROMBO TIME 32.4 SECONDS (20.0-32.1)
[2022-01-08] MEDS ORDERED: PAXLOVID 150-11 EACH PO ×2 (04:41→05:11)
== END 2022-01-08 05:22 | disposition home or self-care (01) ==
LOC: ED 23:50
PROVIDERS: Family Medicine
DX: U07.1 COVID-19 (principal); Z79.899 Other long term (current) drug therapy; Z98.890 Other specified postprocedural states; Z90.49 Acquired absence of other specified parts of digestive tract; Z90.89 Acquired absence of other organs; Z98.51 Tubal ligation status

== ENCOUNTER 2022-02-24 08:44 | Emergency (ER) | payer OTHER ==
[~2022-02-24] VITALS: Ht 165.1 cm; Wt 106.6 kg
[~2022-02-24 08:44] MED LIST changes: +PAXLOVID 150-11 EACH PO
[2022-02-24 08:56] VITALS: BP 175/95
[2022-02-24 09:37] LABS: BASO # 0.1 10*3/uL (0.0-0.1); BASO % 0.9 % (0.0-1.0); EOS # 0.3 10*3/uL (0.0-0.4); EOS % 3.9 % (1.0-4.0); HEMATOCRIT 45.2 % (37.0-47.0); LYMPH # 1.4 10*3/uL (1.3-4.4); LYMPH % 20.4 % (27.0-41.0); MEAN CELL VOLUME 89.2 fl (81.0-99.0); MEAN CORPUSCULAR HGB 30.4 pg (27.0-31.0); MEAN CORPUSCULAR HGB CONC 34.1 g/dl (33.0-37.0); MEAN PLATELET VOLUME 8.9 fl (9.6-12.3); MONO # 0.4 10*3/uL (0.1-1.0); MONO % 5.7 % (3.0-9.0); NEUT # 4.6 10*3/uL (2.3-7.9); NEUT % 68.2 % (47.0-73.0); PLATELET COUNT AUTOMATED 356 10*3/uL (130-400); RED BLOOD COUNT 5.07 10*6/uL (4.10-5.10); RED CELL DISTRI WIDTH 13.9 % (0-14.5); WHITE BLOOD COUNT 6.7 10*3/uL (4.8-10.8)
[2022-02-24 09:55] LABS: ACT PARTIAL THROMBO TIME 29.9 SECONDS (20.0-32.1); ALKALINE PHOSPHATASE 36 U/L (45-117); BUN 7 mg/dl (7-24); CHLORIDE 108 mmol/L (98-107); CREATININE 1.09 mg/dL (0.55-1.02); INTERNATIONAL NORM RATIO 0.9 (2.0-3.5); LIPASE 79 U/L (73-393); POTASSIUM 3.3 mmol/L (3.5-5.1); SGOT/AST 12 IU/L (3-35); SGPT/ALT 26 U/L (12-78); SODIUM 143 mmol/L (136-145); TOTAL PROTEIN 7.6 gm/dL (6.4-8.2)
[2022-02-24 10:01] LABS: BETA-HCG, QUANT < 1.0 mIU/mL (1-3)
[2022-02-24] MEDS ORDERED: PREDNISONE50 MG PO (11:43)
== END 2022-02-24 11:58 | disposition home or self-care (01) ==
LOC: ED 08:44
PROVIDERS: Emergency Medicine
DX: J45.901 Unspecified asthma with (acute) exacerbation (principal); Z79.899 Other long term (current) drug therapy; Z90.49 Acquired absence of other specified parts of digestive tract; Z98.890 Other specified postprocedural states

== ENCOUNTER 2022-05-10 23:27 | Emergency (ER) | payer OTHER ==
[~2022-05-10] VITALS: Ht 165.1 cm; Wt 90.7 kg
[~2022-05-10 23:27] MED LIST changes: +PREDNISONE50 MG PO
[2022-05-11 00:02] LABS: BASO # 0.1 10*3/uL (0.0-0.1); BASO % 0.9 % (0.0-1.0); EOS # 0.1 10*3/uL (0.0-0.4); EOS % 0.5 % (1.0-4.0); HEMATOCRIT 44.2 % (37.0-47.0); LYMPH # 2.7 10*3/uL (1.3-4.4); MEAN CELL VOLUME 88.8 fl (81.0-99.0); MEAN CORPUSCULAR HGB 29.9 pg (27.0-31.0); MEAN CORPUSCULAR HGB CONC 33.7 g/dl (33.0-37.0); MONO # 0.7 10*3/uL (0.1-1.0); MONO % 7.4 % (3.0-9.0); NEUT # 6.3 10*3/uL (2.3-7.9); PLATELET COUNT AUTOMATED 387 10*3/uL (130-400); RED BLOOD COUNT 4.98 10*6/uL (4.10-5.10); RED CELL DISTRI WIDTH 13.6 % (0-14.5); WHITE BLOOD COUNT 9.8 10*3/uL (4.8-10.8)
[2022-05-11 00:22] LABS: ALKALINE PHOSPHATASE 30 U/L (46-116); BUN 10 mg/dl (9-23); CHLORIDE 102 mmol/L (98-107); POTASSIUM 3.2 mmol/L (3.4-5.1); SGPT/ALT 20 U/L (10-49); TOTAL PROTEIN 6.8 gm/dL (6.0-8.0)
[2022-05-11 00:24] LABS: ACT PARTIAL THROMBO TIME 28.7 SECONDS (20.0-32.1)
[2022-05-11 02:12] VITALS: BP 128/69
== END 2022-05-11 02:48 | disposition home or self-care (01) ==
LOC: ED 23:27
PROVIDERS: Emergency Medicine
DX: R07.89 Other chest pain (principal); Z98.890 Other specified postprocedural states; Z90.49 Acquired absence of other specified parts of digestive tract; Z98.51 Tubal ligation status

== ENCOUNTER 2022-06-30 20:40 | Emergency (ER) | payer OTHER ==
[~2022-06-30] VITALS: Ht 165.1 cm; Wt 106.6 kg
[2022-06-30 21:00] VITALS: BP 177/83
[2022-06-30] MEDS ORDERED: PREDNISONE20 M1 PO (22:43)
[2022-06-30] MEDS ORDERED: PROVENTIL HFA6.7 GM INH ×2 (22:43)
[2022-06-30] MEDS ORDERED: ADVAIR 250/501 EA INH (22:43)
[2022-06-30] MEDS ORDERED: IBUPROFEN600 MG PO (22:46)
== END 2022-06-30 23:16 | disposition home or self-care (01) ==
LOC: ED 20:40
DX: S93.402A Sprain of unspecified ligament of left ankle, initial encounter (principal); Z79.899 Other long term (current) drug therapy; Z98.890 Other specified postprocedural states; Z90.49 Acquired absence of other specified parts of digestive tract; Z98.51 Tubal ligation status; X50.1XXA Overexertion from prolonged static or awkward postures, initial encounter; Y93.89 Activity, other specified; Y92.89 Other specified places as the place of occurrence of the external cause; Y99.8 Other external cause status

== ENCOUNTER 2022-08-17 17:20 | Inpatient (IN) | payer OTHER ==
[~2022-08-17] VITALS: Ht 165.1 cm; Wt 104.3 kg
[~2022-08-17 17:20] MED LIST changes: +ADVAIR 250/501 EA INH; +IBUPROFEN600 MG PO
[2022-08-17 17:25] VITALS: BP 183/110
[2022-08-17 17:57] LABS: BASO # 0.1 10*3/uL (0.0-0.1); BASO % 0.9 % (0.0-1.0); EOS # 0.2 10*3/uL (0.0-0.4); HEMATOCRIT 44.2 % (37.0-47.0); LYMPH % 27.2 % (27.0-41.0); MEAN CORPUSCULAR HGB 30.1 pg (27.0-31.0); MEAN CORPUSCULAR HGB CONC 34.2 g/dl (33.0-37.0); MEAN PLATELET VOLUME 8.7 fl (9.6-12.3); MONO # 0.4 10*3/uL (0.1-1.0); MONO % 5.3 % (3.0-9.0); NEUT # 4.7 10*3/uL (2.3-7.9); NEUT % 63.5 % (47.0-73.0); PLATELET COUNT AUTOMATED 354 10*3/uL (130-400); RED BLOOD COUNT 5.02 10*6/uL (4.10-5.10); RED CELL DISTRI WIDTH 13.6 % (0-14.5); WHITE BLOOD COUNT 7.4 10*3/uL (4.8-10.8)
[2022-08-17 18:08] LABS: ACT PARTIAL THROMBO TIME 30.5 SECONDS (20.0-32.1); INTERNATIONAL NORM RATIO 0.9 (2.0-3.5)
[2022-08-17 18:13] LABS: ALKALINE PHOSPHATASE 42 U/L (46-116); BETA-HCG, QUANT < 3.0 mIU/mL (0-10); BUN 8 mg/dl (9-23); CHLORIDE 105 mmol/L (98-107); LIPASE 30 U/L (12-53); POTASSIUM 3.5 mmol/L (3.4-5.1); SGPT/ALT 11 U/L (10-49)
[2022-08-17 21:22] VITALS: BP 140/76
[2022-08-18 08:02] LABS: BASO # 0.1 10*3/uL (0.0-0.1); BASO % 0.8 % (0.0-1.0); EOS # 0.2 10*3/uL (0.0-0.4); HEMATOCRIT 44.7 % (37.0-47.0); LYMPH # 1.3 10*3/uL (1.3-4.4); MEAN CELL VOLUME 90.7 fl (81.0-99.0); MEAN CORPUSCULAR HGB 30.8 pg (27.0-31.0); MEAN PLATELET VOLUME 8.6 fl (9.6-12.3); MONO # 0.3 10*3/uL (0.1-1.0); MONO % 5.7 % (3.0-9.0); NEUT # 4.1 10*3/uL (2.3-7.9); NEUT % 68.3 % (47.0-73.0); PLATELET COUNT AUTOMATED 329 10*3/uL (130-400); RED BLOOD COUNT 4.93 10*6/uL (4.10-5.10); RED CELL DISTRI WIDTH 13.7 % (0-14.5)
[2022-08-18 08:56] VITALS: BP 136/72
[2022-08-18 08:56] LABS: BUN 10 mg/dl (9-23); CHLORIDE 106 mmol/L (98-107); CHOLESTEROL 204 mg/dL (<200); FREE T4 0.93 ng/dl (0.89-1.76); LDL CHOLESTEROL 131 mg/dL (9-159); POTASSIUM 3.7 mmol/L (3.4-5.1); TRIGLYCERIDES 177 mg/dl (<150)
[2022-08-18 09:25] LABS: VITAMIN D, 25-HYDROXY 15.4 ng/mL (30-100)
[2022-08-18 13:33] VITALS: BP 165/92
[2022-08-18] MEDS ORDERED: VITAMIN D3125 MC1 PO (15:02)
== END 2022-08-18 19:07 | disposition home or self-care (01) | DRG 313 ==
LOC: ED 17:20 → EDHOLD 19:12
PROVIDERS: Emergency Medicine; Student in an Organized Health Care Education/Training Program; ADMIT Internal Medicine; ATTEND Internal Medicine
PROC: 4A02XM4 Measurement of Cardiac Total Activity, External Approach (ICD-10-PCS; principal; 2022-08-18)
PROC: 3E073KZ Introduction of Other Diagnostic Substance into Coronary Artery, Percutaneous Approach (ICD-10-PCS; 2022-08-18)
DX: R07.89 Other chest pain (principal); I16.0 Hypertensive urgency; K21.9 Gastro-esophageal reflux disease without esophagitis; G47.33 Obstructive sleep apnea (adult) (pediatric); E03.9 Hypothyroidism, unspecified; R73.9 Hyperglycemia, unspecified; E66.01 Morbid (severe) obesity due to excess calories; I12.9 Hypertensive chronic kidney disease with stage 1 through stage 4 chronic kidney disease, or unspecified chronic kidney disease; N18.31 Chronic kidney disease, stage 3a; F32.A Depression, unspecified; Z90.49 Acquired absence of other specified parts of digestive tract; Z98.891 History of uterine scar from previous surgery; Z98.51 Tubal ligation status; Z82.49 Family history of ischemic heart disease and other diseases of the circulatory system; Z80.8 Family history of malignant neoplasm of other organs or systems; Z79.82 Long term (current) use of aspirin; Z79.899 Other long term (current) drug therapy; Z86.16 Personal history of COVID-19; Z68.38 Body mass index [BMI] 38.0-38.9, adult

== ENCOUNTER 2022-09-05 18:18 | Emergency (ER) | payer OTHER ==
[~2022-09-05] VITALS: Ht 165.1 cm; Wt 106.6 kg
[~2022-09-05 18:18] MED LIST changes: +VITAMIN D3125 MC1 PO
[2022-09-05 18:37] VITALS: BP 189/107
[2022-09-05 18:44] LABS: BASO # 0.1 10*3/uL (0.0-0.1); EOS # 0.3 10*3/uL (0.0-0.4); EOS % 4.3 % (1.0-4.0); HEMATOCRIT 42.1 % (37.0-47.0); LYMPH # 1.9 10*3/uL (1.3-4.4); LYMPH % 25.5 % (27.0-41.0); MEAN CELL VOLUME 89.4 fl (81.0-99.0); MEAN CORPUSCULAR HGB CONC 34.7 g/dl (33.0-37.0); MEAN PLATELET VOLUME 8.9 fl (9.6-12.3); MONO # 0.4 10*3/uL (0.1-1.0); MONO % 5.9 % (3.0-9.0); NEUT # 4.6 10*3/uL (2.3-7.9); NEUT % 63.2 % (47.0-73.0); PLATELET COUNT AUTOMATED 341 10*3/uL (130-400); RED BLOOD COUNT 4.71 10*6/uL (4.10-5.10); RED CELL DISTRI WIDTH 13.6 % (0-14.5); WHITE BLOOD COUNT 7.3 10*3/uL (4.8-10.8)
[2022-09-05 19:10] LABS: ALKALINE PHOSPHATASE 39 U/L (46-116); BUN 9 mg/dl (9-23); CHLORIDE 105 mmol/L (98-107); POTASSIUM 3.6 mmol/L (3.4-5.1); SGPT/ALT 10 U/L (10-49); TOTAL PROTEIN 7.2 gm/dL (6.0-8.0)
== END 2022-09-05 20:35 | disposition home or self-care (01) ==
LOC: ED 18:18
PROVIDERS: Student in an Organized Health Care Education/Training Program
DX: R07.89 Other chest pain (principal); M54.2 Cervicalgia; M79.602 Pain in left arm; I10 Essential (primary) hypertension; Z90.49 Acquired absence of other specified parts of digestive tract; Z98.51 Tubal ligation status; Z98.890 Other specified postprocedural states

== ENCOUNTER 2022-10-05 12:34 | Emergency (ER) | payer SELFPAY ==
[2022-10-05 13:07] LABS: BASO # 0.1 10*3/uL (0.0-0.1); BASO % 0.8 % (0.0-1.0); EOS # 0.2 10*3/uL (0.0-0.4); EOS % 3.4 % (1.0-4.0); HEMATOCRIT 42.6 % (37.0-47.0); LYMPH # 1.5 10*3/uL (1.3-4.4); LYMPH % 22.4 % (27.0-41.0); MEAN CELL VOLUME 90.6 fl (81.0-99.0); MEAN CORPUSCULAR HGB 30.6 pg (27.0-31.0); MEAN CORPUSCULAR HGB CONC 33.8 g/dl (33.0-37.0); MEAN PLATELET VOLUME 8.7 fl (9.6-12.3); MONO # 0.3 10*3/uL (0.1-1.0); MONO % 5.3 % (3.0-9.0); NEUT # 4.4 10*3/uL (2.3-7.9); NEUT % 67.9 % (47.0-73.0); PLATELET COUNT AUTOMATED 347 10*3/uL (130-400); RED CELL DISTRI WIDTH 14.2 % (0-14.5); WHITE BLOOD COUNT 6.5 10*3/uL (4.8-10.8)
[2022-10-05 13:10] VITALS: BP 157/90
[2022-10-05 13:30] LABS: ALKALINE PHOSPHATASE 37 U/L (46-116); BUN 8 mg/dl (9-23); CHLORIDE 105 mmol/L (98-107); POTASSIUM 3.5 mmol/L (3.4-5.1); SGPT/ALT 11 U/L (10-49)
== END 2022-10-05 16:06 | disposition home or self-care (01) ==
LOC: ED 12:34
PROVIDERS: Family Medicine
DX: R07.89 Other chest pain (principal); Z79.899 Other long term (current) drug therapy; Z90.49 Acquired absence of other specified parts of digestive tract; Z98.890 Other specified postprocedural states

== ENCOUNTER 2022-11-05 19:49 | Emergency (ER) | payer MEDICAID ==
[~2022-11-05] VITALS: Ht 165.1 cm; Wt 104.3 kg
[2022-11-05] MEDS ORDERED: LISINOPRIL20 MG PO (20:05)
[2022-11-05 21:25] VITALS: BP 152/102
== END 2022-11-05 21:38 | disposition home or self-care (01) ==
LOC: ED 19:49
DX: I10 Essential (primary) hypertension (principal); R51.9 Headache, unspecified; Z90.49 Acquired absence of other specified parts of digestive tract; Z98.890 Other specified postprocedural states; Z98.51 Tubal ligation status

== ENCOUNTER 2022-12-15 20:17 | Emergency (ER) | payer MEDICAID ==
[~2022-12-15] VITALS: Ht 165.1 cm; Wt 104.3 kg
[2022-12-15 20:17] VITALS: BP 134/70
[~2022-12-15 20:17] MED LIST changes: +LISINOPRIL20 MG PO
[2022-12-15] MEDS ORDERED: AMOX-CLAV 875-1 EACH PO (20:47)
== END 2022-12-15 21:00 | disposition home or self-care (01) ==
LOC: ED 20:17
DX: H66.91 Otitis media, unspecified, right ear (principal); I10 Essential (primary) hypertension; Z90.49 Acquired absence of other specified parts of digestive tract; Z98.890 Other specified postprocedural states; Z98.51 Tubal ligation status

== ENCOUNTER 2023-04-16 17:44 | Emergency (ER) | payer SELFPAY ==
[~2023-04-16] VITALS: Ht 165.1 cm; Wt 111.1 kg
[~2023-04-16 17:44] MED LIST changes: +AMOX-CLAV 875-1 EACH PO
[2023-04-16 18:00] VITALS: BP 154/80
== END 2023-04-16 20:16 | disposition home or self-care (01) ==
LOC: ED 17:44
DX: S93.402A Sprain of unspecified ligament of left ankle, initial encounter (principal); J45.909 Unspecified asthma, uncomplicated; F32.A Depression, unspecified; K21.9 Gastro-esophageal reflux disease without esophagitis; R73.9 Hyperglycemia, unspecified; E03.9 Hypothyroidism, unspecified; I12.9 Hypertensive chronic kidney disease with stage 1 through stage 4 chronic kidney disease, or unspecified chronic kidney disease; N18.30 Chronic kidney disease, stage 3 unspecified; Z90.49 Acquired absence of other specified parts of digestive tract; Z98.890 Other specified postprocedural states; Z98.51 Tubal ligation status; X50.1XXA Overexertion from prolonged static or awkward postures, initial encounter; Y93.01 Activity, walking, marching and hiking; Y92.89 Other specified places as the place of occurrence of the external cause; Y99.8 Other external cause status

== ENCOUNTER 2023-05-06 18:55 | Emergency (ER) | payer MEDICAID ==
[~2023-05-06] VITALS: Ht 165.1 cm; Wt 108.9 kg
[2023-05-06 19:03] VITALS: BP 184/87
== END 2023-05-06 20:32 | disposition home or self-care (01) ==
LOC: ED 18:55
DX: M25.532 Pain in left wrist (principal); Z79.899 Other long term (current) drug therapy; Z98.890 Other specified postprocedural states; Z90.49 Acquired absence of other specified parts of digestive tract; Z98.51 Tubal ligation status

== ENCOUNTER 2023-07-18 16:55 | Emergency (ER) | payer BC ==
[~2023-07-18] VITALS: Wt 108.9 kg
[2023-07-18 17:13] VITALS: BP 190/99
[2023-07-18 17:35] LABS: BASO # 0.1 10*3/uL (0.0-0.1); BASO % 0.7 % (0.0-1.0); EOS # 0.1 10*3/uL (0.0-0.4); EOS % 1.4 % (1.0-4.0); HEMATOCRIT 42.6 % (37.0-47.0); LYMPH % 23.4 % (27.0-41.0); MEAN CELL VOLUME 91.4 fl (81.0-99.0); MEAN CORPUSCULAR HGB CONC 32.9 g/dl (33.0-37.0); MEAN PLATELET VOLUME 8.4 fl (9.6-12.3); MONO # 0.5 10*3/uL (0.1-1.0); MONO % 6.1 % (3.0-9.0); NEUT # 5.8 10*3/uL (2.3-7.9); PLATELET COUNT AUTOMATED 367 10*3/uL (130-400); RED BLOOD COUNT 4.66 10*6/uL (4.10-5.10); RED CELL DISTRI WIDTH 14.3 % (0-14.5); WHITE BLOOD COUNT 8.5 10*3/uL (4.8-10.8)
[2023-07-18 17:47] LABS: ACT PARTIAL THROMBO TIME 30.8 SECONDS (20.0-32.1)
[2023-07-18 17:53] LABS: ALKALINE PHOSPHATASE 37 U/L (46-116); BUN 6 mg/dl (9-23); CHLORIDE 102 mmol/L (98-107); POTASSIUM 3.8 mmol/L (3.4-5.1); SGPT/ALT 15 U/L (5-49); TOTAL PROTEIN 7.5 gm/dL (6.0-8.0)
[2023-07-18 18:08] LABS: BILIRUBIN Negative (Negative); BLOOD 1+ (Negative); CLARITY Cloudy (Clear); COLOR Yellow (Yellow); GLUCOSE Negative (Negative); KETONE Negative (Negative); LEUKO ESTERASE 3+ (Negative); NITRITE Negative (Negative); PH 5.5 (4.5-8.0); UROBILINOGEN 0.2 E.U./dl (0.0-1.0)
[2023-07-18 18:28] LABS: BACTERIA 3+; EPITHELIAL CELLS 21-30; RBC 51-100 rbc/hpf (0-2); WBC TNTC wbc/hpf (0-5)
[2023-07-18] MEDS ORDERED: CIPRO500 MG PO (19:17)
[2023-07-18] MEDS ORDERED: METRONIDAZOLE500 M1 PO (19:17)
[2023-07-18] MEDS ORDERED: METRONIDAZOLE 500 MG TAB PO ONE (19:20)
[2023-07-18] MEDS ORDERED: Ciprofloxacin Hydrochloride 500 MG TAB PO ONE (19:20)
[2023-07-18] MEDS ORDERED: AZITHROMYCIN 250 MG TAB PO ONE (19:20)
== END 2023-07-18 20:00 | disposition home or self-care (01) ==
LOC: ED 16:55
PROVIDERS: Nurse Practitioner Family
DX: N39.0 Urinary tract infection, site not specified (principal); A59.9 Trichomoniasis, unspecified; Z20.2 Contact with and (suspected) exposure to infections with a predominantly sexual mode of transmission; N89.8 Other specified noninflammatory disorders of vagina; N93.8 Other specified abnormal uterine and vaginal bleeding; Z87.442 Personal history of urinary calculi; Z79.899 Other long term (current) drug therapy; Z98.890 Other specified postprocedural states; Z90.49 Acquired absence of other specified parts of digestive tract; Z98.51 Tubal ligation status

== ENCOUNTER 2023-10-23 15:31 | Emergency (ER) | payer MEDICAID ==
[~2023-10-23] VITALS: Ht 165.1 cm; Wt 108.9 kg
[~2023-10-23 15:31] MED LIST changes: +METRONIDAZOLE500 M1 PO
[2023-10-23 16:18] VITALS: BP 173/100
[2023-10-23] MEDS ORDERED: MELOXICAM15 MG PO (18:45)
[2023-10-23] MEDS ORDERED: Ketorolac Tromethamine 15 MG/ML VIAL IM ONE (18:45)
== END 2023-10-23 20:17 | disposition home or self-care (01) ==
LOC: ED 15:31
DX: M25.562 Pain in left knee (principal); I10 Essential (primary) hypertension; Z79.899 Other long term (current) drug therapy; Z79.2 Long term (current) use of antibiotics; Z98.890 Other specified postprocedural states; Z90.49 Acquired absence of other specified parts of digestive tract; Z98.51 Tubal ligation status; X50.1XXA Overexertion from prolonged static or awkward postures, initial encounter; Y93.89 Activity, other specified; Y92.89 Other specified places as the place of occurrence of the external cause; Y99.8 Other external cause status

== ENCOUNTER 2023-11-04 19:51 | Emergency (ER) | payer MEDICAID ==
[~2023-11-04] VITALS: Ht 170.1 cm; Wt 99.8 kg
[~2023-11-04 19:51] MED LIST changes: +MELOXICAM15 MG PO
[2023-11-04] MEDS ORDERED: SODIUM CHLORIDE 0.9% 1,000 ML IV ONE (19:55)
[2023-11-04 20:07] LABS: BASO # 0.1 10*3/uL (0.0-0.1); BASO % 0.8 % (0.0-1.0); EOS # 0.2 10*3/uL (0.0-0.4); EOS % 1.9 % (1.0-4.0); HEMATOCRIT 41.6 % (37.0-47.0); LYMPH # 1.9 10*3/uL (1.3-4.4); LYMPH % 24.7 % (27.0-41.0); MEAN CELL VOLUME 90.2 fl (81.0-99.0); MEAN CORPUSCULAR HGB 30.6 pg (27.0-31.0); MEAN CORPUSCULAR HGB CONC 33.9 g/dl (33.0-37.0); MEAN PLATELET VOLUME 8.6 fl (9.6-12.3); MONO # 0.5 10*3/uL (0.1-1.0); MONO % 5.9 % (3.0-9.0); NEUT # 5.2 10*3/uL (2.3-7.9); NEUT % 66.4 % (47.0-73.0); PLATELET COUNT AUTOMATED 357 10*3/uL (130-400); RED BLOOD COUNT 4.61 10*6/uL (4.10-5.10); RED CELL DISTRI WIDTH 14.2 % (0-14.5); WHITE BLOOD COUNT 7.8 10*3/uL (4.8-10.8)
[2023-11-04 20:18] LABS: ACT PARTIAL THROMBO TIME 28.5 SECONDS (20.0-32.1)
[2023-11-04 20:23] VITALS: BP 153/91
[2023-11-04 20:35] LABS: ALKALINE PHOSPHATASE 40 U/L (46-116); BUN 9 mg/dl (9-23); CHLORIDE 103 mmol/L (98-107); POTASSIUM 3.5 mmol/L (3.4-5.1); SGPT/ALT 20 U/L (5-49); TOTAL PROTEIN 7.1 gm/dL (6.0-8.0)
== END 2023-11-04 22:57 | disposition home or self-care (01) ==
LOC: ED 19:51
PROVIDERS: Internal Medicine
DX: R07.89 Other chest pain (principal); M54.2 Cervicalgia; Z90.49 Acquired absence of other specified parts of digestive tract; Z98.890 Other specified postprocedural states; Z98.51 Tubal ligation status; I10 Essential (primary) hypertension; Z87.442 Personal history of urinary calculi

== ENCOUNTER 2024-01-04 17:12 | Emergency (ER) | payer MEDICAID ==
[~2024-01-04] VITALS: Ht 165.1 cm; Wt 111.1 kg
[2024-01-04 17:56] VITALS: BP 163/95
[2024-01-04] MEDS ORDERED: ACETAMINOPHEN 325 MG TAB PO ONE (18:25)
== END 2024-01-04 19:40 | disposition home or self-care (01) ==
LOC: ED 17:12
DX: U07.1 COVID-19 (principal); Z20.822 Contact with and (suspected) exposure to COVID-19; I10 Essential (primary) hypertension; Z90.49 Acquired absence of other specified parts of digestive tract; Z98.890 Other specified postprocedural states; Z98.51 Tubal ligation status; Z87.442 Personal history of urinary calculi

== ENCOUNTER 2024-03-16 16:37 | Emergency (ER) | payer MEDICAID ==
[~2024-03-16] VITALS: Ht 165.1 cm; Wt 113.4 kg
[2024-03-16 17:01] VITALS: BP 167/91
[2024-03-16] MEDS ORDERED: Lidocaine Hydrochloride 2% 10 ML AMP SC ONE (17:10)
[2024-03-16] MEDS ORDERED: SEPTDS PO (17:33)
[2024-03-16] MEDS ORDERED: Sulfamethoxazole/Trimethopri 1 TAB TAB PO ONE (17:40)
== END 2024-03-16 17:39 | disposition home or self-care (01) ==
LOC: ED 16:37
DX: L03.011 Cellulitis of right finger (principal); I10 Essential (primary) hypertension; J45.909 Unspecified asthma, uncomplicated; F32.A Depression, unspecified; E03.9 Hypothyroidism, unspecified; I12.9 Hypertensive chronic kidney disease with stage 1 through stage 4 chronic kidney disease, or unspecified chronic kidney disease; N18.30 Chronic kidney disease, stage 3 unspecified; Z87.442 Personal history of urinary calculi; Z90.49 Acquired absence of other specified parts of digestive tract; Z98.890 Other specified postprocedural states; Z98.51 Tubal ligation status

== ENCOUNTER 2024-04-08 16:26 | Emergency (ER) | payer SELFPAY ==
[~2024-04-08] VITALS: Ht 165.1 cm; Wt 113.4 kg
[2024-04-08 16:33] VITALS: BP 155/70
[2024-04-08] MEDS ORDERED: CEPHALEXIN500 M1 PO (16:51)
== END 2024-04-08 16:47 | disposition home or self-care (01) ==
LOC: ED 16:26
DX: G89.18 Other acute postprocedural pain (principal); N64.4 Mastodynia; N63.20 Unspecified lump in the left breast, unspecified quadrant; Z79.2 Long term (current) use of antibiotics; Z79.899 Other long term (current) drug therapy; Z98.890 Other specified postprocedural states; Z90.49 Acquired absence of other specified parts of digestive tract; Z98.51 Tubal ligation status

== ENCOUNTER 2024-05-01 15:56 | Emergency (ER) | payer SELFPAY ==
[~2024-05-01] VITALS: Ht 165.1 cm; Wt 108.9 kg
[2024-05-01 16:23] VITALS: BP 122/80
== END 2024-05-01 17:53 | disposition home or self-care (01) ==
LOC: ED 15:56
DX: N60.02 Solitary cyst of left breast (principal); J45.909 Unspecified asthma, uncomplicated; K21.9 Gastro-esophageal reflux disease without esophagitis; F32.A Depression, unspecified; E03.9 Hypothyroidism, unspecified; I12.9 Hypertensive chronic kidney disease with stage 1 through stage 4 chronic kidney disease, or unspecified chronic kidney disease; N18.30 Chronic kidney disease, stage 3 unspecified; Z87.442 Personal history of urinary calculi; Z90.49 Acquired absence of other specified parts of digestive tract; Z98.890 Other specified postprocedural states; Z98.51 Tubal ligation status

== ENCOUNTER 2024-07-08 15:33 | Emergency (ER) | payer SELFPAY ==
[~2024-07-08] VITALS: Ht 165.1 cm; Wt 113.4 kg
[2024-07-08 15:47] VITALS: BP 194/104
[2024-07-08 16:30] LABS: BILIRUBIN Negative (Negative); BLOOD Negative (Negative); CLARITY Clear (Clear); COLOR Yellow (Yellow); GLUCOSE Negative (Negative); KETONE Negative (Negative); LEUKO ESTERASE 2+ (Negative); NITRITE Negative (Negative); PH 5.5 (4.5-8.0); SPECIFIC GRAVITY 1.015 (1.001-1.030); UROBILINOGEN 0.2 E.U./dl (0.0-1.0)
[2024-07-08 16:38] LABS: BACTERIA 1+; MUCOUS 1+; WBC 21-30 wbc/hpf (0-5)
[2024-07-08] MEDS ORDERED: OMNICEF300 MG PO (17:00)
== END 2024-07-08 16:54 | disposition home or self-care (01) ==
LOC: ED 15:33
PROVIDERS: Emergency Medicine
DX: N30.90 Cystitis, unspecified without hematuria (principal); I10 Essential (primary) hypertension; J45.909 Unspecified asthma, uncomplicated; E03.9 Hypothyroidism, unspecified; Z87.442 Personal history of urinary calculi; Z79.899 Other long term (current) drug therapy; Z90.49 Acquired absence of other specified parts of digestive tract; Z98.51 Tubal ligation status; Z98.890 Other specified postprocedural states

== ENCOUNTER 2024-08-07 02:30 | Emergency (ER) | payer SELFPAY ==
[~2024-08-07] VITALS: Ht 165.1 cm; Wt 113.4 kg
[~2024-08-07 02:30] MED LIST changes: +OMNICEF300 MG PO
[2024-08-07 02:34] VITALS: BP 163/87
[2024-08-07 02:48] LABS: BILIRUBIN Negative (Negative); BLOOD Negative (Negative); CLARITY Clear (Clear); COLOR Yellow (Yellow); GLUCOSE Negative (Negative); KETONE Negative (Negative); LEUKO ESTERASE 2+ (Negative); NITRITE Negative (Negative); PH 5.5 (4.5-8.0); SPECIFIC GRAVITY 1.015 (1.001-1.030); UROBILINOGEN 0.2 E.U./dl (0.0-1.0)
[2024-08-07 03:09] LABS: BACTERIA 2+; EPITHELIAL CELLS 31-40; WBC 16-20 wbc/hpf (0-5)
[2024-08-07] MEDS ORDERED: Ciprofloxacin Hydrochloride 500 MG TAB PO ONE (04:05)
[2024-08-07] MEDS ORDERED: CIPRO500 MG PO (04:07)
== END 2024-08-07 04:15 | disposition home or self-care (01) ==
LOC: ED 02:30
PROVIDERS: Internal Medicine
DX: N39.0 Urinary tract infection, site not specified (principal); Z87.442 Personal history of urinary calculi; Z79.899 Other long term (current) drug therapy; Z98.890 Other specified postprocedural states; Z90.49 Acquired absence of other specified parts of digestive tract

== ENCOUNTER 2024-09-10 17:20 | Emergency (ER) | payer MEDICAID ==
[~2024-09-10] VITALS: Wt 117.9 kg
[2024-09-10 17:35] VITALS: BP 174/83
[2024-09-10] MEDS ORDERED: ACETAMINOPHEN 325 MG TAB PO ONE (17:45)
== END 2024-09-10 18:06 | disposition home or self-care (01) ==
LOC: ED 17:20
DX: S93.401A Sprain of unspecified ligament of right ankle, initial encounter (principal); I10 Essential (primary) hypertension; Z79.899 Other long term (current) drug therapy; Z90.49 Acquired absence of other specified parts of digestive tract; Z98.51 Tubal ligation status; Z98.890 Other specified postprocedural states; X58.XXXA Exposure to other specified factors, initial encounter; Y93.01 Activity, walking, marching and hiking; Y92.89 Other specified places as the place of occurrence of the external cause; Y99.8 Other external cause status

== ENCOUNTER 2024-11-08 17:12 | Emergency (ER) | payer OTHER ==
[~2024-11-08] VITALS: Ht 165.1 cm; Wt 117.9 kg
[2024-11-08 17:24] VITALS: BP 149/83
[2024-11-08 18:06] LABS: BASO # 0.1 10*3/uL (0.0-0.1); BASO % 0.6 % (0.0-1.0); EOS # 0.2 10*3/uL (0.0-0.4); EOS % 2.0 % (1.0-4.0); MEAN CELL VOLUME 89.9 fl (81.0-99.0); MEAN CORPUSCULAR HGB 30.4 pg (27.0-31.0); MEAN PLATELET VOLUME 8.7 fl (9.6-12.3); MONO # 0.6 10*3/uL (0.1-1.0); MONO % 8.1 % (3.0-9.0); NEUT # 4.9 10*3/uL (2.3-7.9); NEUT % 62.9 % (47.0-73.0); NUCLEATED RED BLOOD CELL 0.0 % (0.0-0.0); NUCLEATED RED BLOOD CELL 0.0 10*3/uL (0.0-0.0); PLATELET COUNT AUTOMATED 351 10*3/uL (130-400); RED CELL DISTRI WIDTH 14.0 % (0-14.5)
[2024-11-08 18:24] LABS: BUN 12.0 mg/dl (9-23)
[2024-11-08] MEDS ORDERED: SODIUM CHLORIDE 0.9% 1,000 ML IV ONE (18:55)
== END 2024-11-08 20:24 | disposition home or self-care (01) ==
LOC: ED 17:12
PROVIDERS: Internal Medicine
DX: R07.89 Other chest pain (principal); R05.9 Cough, unspecified; I12.9 Hypertensive chronic kidney disease with stage 1 through stage 4 chronic kidney disease, or unspecified chronic kidney disease; N18.32 Chronic kidney disease, stage 3b; Z79.899 Other long term (current) drug therapy; Z98.890 Other specified postprocedural states; Z90.49 Acquired absence of other specified parts of digestive tract

== ENCOUNTER 2024-12-22 17:16 | Inpatient (IN) | payer OTHER ==
[~2024-12-22] VITALS: Ht 165.1 cm; Wt 117.9 kg
[2024-12-22 17:44] VITALS: BP 199/99
[2024-12-22] MEDS ORDERED: ASPIRIN, CHEWABLE 81 MG TAB PO ONE (18:05)
[2024-12-22 18:19] LABS: BASO # 0.0 10*3/uL (0.0-0.1); BASO % 0.6 % (0.0-1.0); EOS # 0.0 10*3/uL (0.0-0.4); EOS % 0.6 % (1.0-4.0); MEAN CELL VOLUME 89.6 fl (81.0-99.0); MEAN CORPUSCULAR HGB 30.0 pg (27.0-31.0); MEAN PLATELET VOLUME 8.7 fl (9.6-12.3); MONO # 0.4 10*3/uL (0.1-1.0); MONO % 5.4 % (3.0-9.0); NEUT # 4.9 10*3/uL (2.3-7.9); NEUT % 74.3 % (47.0-73.0); NUCLEATED RED BLOOD CELL 0.0 % (0.0-0.0); NUCLEATED RED BLOOD CELL 0.0 10*3/uL (0.0-0.0); PLATELET COUNT AUTOMATED 341 10*3/uL (130-400); RED CELL DISTRI WIDTH 13.6 % (0-14.5)
[2024-12-22 18:29] LABS: ACT PARTIAL THROMBO TIME 29.0 SECONDS (20.0-32.1)
[2024-12-22 18:38] LABS: BUN 9.0 mg/dl (9-23)
[2024-12-22 20:01] VITALS: BP 192/93
[2024-12-22] MEDS ORDERED: POTASSIUM CHLORIDE 20 MEQ TAB PO ONE (20:05)
[2024-12-22 20:27] VITALS: BP 158/83
[2024-12-22] MEDS ORDERED: ROSUVASTATIN CA20 MG PO (20:47)
[2024-12-22] MEDS ORDERED: HYDROXYZINE HCL25 MG PO (20:47)
[2024-12-22] MEDS ORDERED: BUSPIRONE HCL7.5 MG PO (20:49)
[2024-12-22] MEDS ORDERED: LEVOTHYROXINE50 MCG PO (20:50)
[2024-12-22] MEDS ORDERED: LOSARTAN-HCTZ1 EACH PO (20:50)
[2024-12-22] MEDS ORDERED: CETIRIZINE10 MG PO (20:51)
[2024-12-22] MEDS ORDERED: Ondansetron Hydrochloride 4 MG/2 ML VIAL IV PRN (22:30)
[2024-12-22] MEDS ORDERED: ACETAMINOPHEN 650 MG SUPP R PRN (22:30)
[2024-12-22] MEDS ORDERED: ACETAMINOPHEN 325 MG TAB PO PRN (22:30)
[2024-12-22] MEDS ORDERED: Technetium Tc 99M Tetrofosmi 0.23 MG KIT IJ SCH (22:50)
[2024-12-23 00:55] VITALS: BP 179/101
[2024-12-23 03:14] VITALS: BP 156/93
[2024-12-23] MEDS ORDERED: Regadenoson 0.4 MG/5 ML SYR IV ONE (05:23)
[2024-12-23 06:18] LABS: BASO # 0.1 10*3/uL (0.0-0.1); BASO % 0.8 % (0.0-1.0); EOS # 0.1 10*3/uL (0.0-0.4); EOS % 2.1 % (1.0-4.0); MEAN CELL VOLUME 90.5 fl (81.0-99.0); MEAN CORPUSCULAR HGB 30.5 pg (27.0-31.0); MEAN PLATELET VOLUME 9.0 fl (9.6-12.3); MONO # 0.5 10*3/uL (0.1-1.0); MONO % 7.5 % (3.0-9.0); NEUT # 3.9 10*3/uL (2.3-7.9); NEUT % 62.0 % (47.0-73.0); NUCLEATED RED BLOOD CELL 0.0 % (0.0-0.0); NUCLEATED RED BLOOD CELL 0.0 10*3/uL (0.0-0.0); PLATELET COUNT AUTOMATED 335 10*3/uL (130-400); RED CELL DISTRI WIDTH 13.8 % (0-14.5)
[2024-12-23 06:24] VITALS: BP 133/91
[2024-12-23 06:34] LABS: BUN 9.0 mg/dl (9-23); FREE T4 1.03 ng/dl (0.89-1.76); LDL CHOLESTEROL 109.0 mg/dL (9-159); SGPT/ALT 23.0 U/L (5-49)
[2024-12-23] MEDS ORDERED: ASPIRIN ENTERIC COATED 81 MG TAB PO SCH (10:00)
[2024-12-23] MEDS ORDERED: ATORVASTATIN CALCIUM 40 MG TABLET PO SCH (10:00)
[2024-12-23] MEDS ORDERED: METOPROLOL SUCCINATE XR 25 MG TAB PO SCH (10:00)
[2024-12-23] MEDS ORDERED: busPIRone Hydrochloride 7.5 MG TAB PO SCH (10:00)
[2024-12-23] MEDS ORDERED: Cholecalciferol 5,000 IU CAP (125 MCG) PO SCH (10:00)
[2024-12-23 10:40] VITALS: BP 184/96
[2024-12-23] MEDS ORDERED: NORVASC5 MG PO (12:06)
[2024-12-23] MEDS ORDERED: ATORVASTATIN CALCIUM 80 MG TAB PO SCH (22:00)
== END 2024-12-23 12:34 | disposition home or self-care (01) | DRG 305 ==
LOC: ED 17:16 → EDHOLD 20:41
PROVIDERS: Nurse Practitioner Family; ADMIT Student in an Organized Health Care Education/Training Program; ATTEND Student in an Organized Health Care Education/Training Program
PROC: 4A02XM4 Measurement of Cardiac Total Activity, External Approach (ICD-10-PCS; principal; 2024-12-23)
PROC: 3E033HZ Introduction of Radioactive Substance into Peripheral Vein, Percutaneous Approach (ICD-10-PCS; 2024-12-23)
DX: I16.1 Hypertensive emergency (principal); K76.0 Fatty (change of) liver, not elsewhere classified; N18.31 Chronic kidney disease, stage 3a; F32.A Depression, unspecified; E03.9 Hypothyroidism, unspecified; E87.6 Hypokalemia; E78.5 Hyperlipidemia, unspecified; I12.9 Hypertensive chronic kidney disease with stage 1 through stage 4 chronic kidney disease, or unspecified chronic kidney disease; N18.30 Chronic kidney disease, stage 3 unspecified; G47.33 Obstructive sleep apnea (adult) (pediatric); K21.9 Gastro-esophageal reflux disease without esophagitis; E55.9 Vitamin D deficiency, unspecified; J45.20 Mild intermittent asthma, uncomplicated; Z90.49 Acquired absence of other specified parts of digestive tract; Z98.51 Tubal ligation status; Z80.8 Family history of malignant neoplasm of other organs or systems